=== PATIENT | female | born 1970 | race Caucasian/White ===

== ENCOUNTER → 2016-04-19 | Outpatient (CLI) | payer OTHER ==
[2016-04-22 14:54] LABS: CHLAMYDIA TRACH RNA*** NOT DETECTED (NOT DETECTED); GC (NEIS GONORRHOEAE)RNA** NOT DETECTED (NOT DETECTED)
== END | disposition home or self-care (01) ==
LOC: C.LABSPEC 17:48
PROVIDERS: ATTEND Obstetrics & Gynecology
DX: Z20.2 Contact with and (suspected) exposure to infections with a predominantly sexual mode of transmission (principal)

== ENCOUNTER → 2016-04-20 | Outpatient (CLI) | payer OTHER ==
--- NOTE | 2016-04-20 16:17 | MAMMOGRAPHY REPORT ---
BILATERAL DIGITAL SCREENING MAMMOGRAM TOMOSYNTHESIS WITH CAD: 04/20/2016 CLINICAL HISTORY: Routine screening examination. TECHNIQUE: Breast tomosynthesis in addition to standard 2D mammography was performed. Current study was also evaluated with a Computer Aided Detection (CAD) system. COMPARISON: Comparison is made to exams dated: 04/16/2015 mammogram, 04/15/2014 mammogram, 02/04/2012 mammogram, 04/11/2013 mammogram, 02/16/2012 ultrasound, and 02/16/2012 mammogram - [facility]. BREAST COMPOSITION: The tissue of both breasts is heterogeneously dense, which may obscure small ma sses. FINDINGS: The parenchymal pattern is similar to prior exams. A nodular asymmetry in the lateral mi ddle to posterior right breast on the CC view appears very similar to the 04/11/2013 exam, therefore likely benign. No developing mass, architectural distortion or cluster of suspicious microcalcific ations is seen. IMPRESSION: ACR BI-RADS CATEGORY 2: BENIGN There is no mammographic evidence of malignancy. A 1 year screening mammogram is recommended. The p atient will receive written notification of the results. Approximately 10% of breast cancers are not detected with mammography. A negative mammographic repor t should not delay biopsy if a clinically suggestive mass is present. Annel Sawant M.D. ay/:04/20/2016 15:22:46 Adjuster Arbitrator: Aniat HERNANDEZ(Laron)(Chin), [facility] letter sent: Normal 1/2 BI-RADS Code: ACR BI-RADS Category 2: Benign
== END | disposition home or self-care (01) ==
LOC: C.MAMM 11:10
PROVIDERS: ATTEND Obstetrics & Gynecology
DX: Z12.31 Encounter for screening mammogram for malignant neoplasm of breast (principal)

== ENCOUNTER → 2017-04-22 | Outpatient (CLI) | payer OTHER ==
--- NOTE | 2017-04-22 13:23 | MAMMOGRAPHY REPORT ---
BILATERAL DIGITAL SCREENING MAMMOGRAM TOMOSYNTHESIS WITH CAD: 04/22/2017 CLINICAL HISTORY: Routine screening. Patient has no complaints. TECHNIQUE: Breast tomosynthesis in addition to standard 2D mammography was performed. Current study was also evaluated with a Computer Aided Detection (CAD) system. COMPARISON: Comparison is made to exams dated: 04/20/2016 mammogram, 04/16/2015 mammogram, 04/15/2014 m ammogram, 04/11/2013 mammogram, 02/16/2012 mammogram, and 02/04/2012 mammogram - [facility]. BREAST COMPOSITION: The tissue of both breasts is heterogeneously dense, which may obscure small mas ses. FINDINGS: No suspicious masses, calcifications, or areas of architectural distortion are noted in ei ther breast. There has been no significant interval change compared to prior exams. IMPRESSION: ACR BI-RADS CATEGORY 1: NEGATIVE There is no mammographic evidence of malignancy. A 1 year screening mammogram is recommended. The pa tient will receive written notification of the results. Approximately 10% of breast cancers are not detected with mammography. A negative mammographic report should not delay biopsy if a clinically suggestive mass is present. Omaira Nuno M.D. ah/:04/22/2017 11:47:41 Afterschool: Tereza HERNANDEZ(R)(M), [facility] letter sent: Normal 1/2 BI-RADS Code: ACR BI-RADS Category 1: Negative
== END | disposition home or self-care (01) ==
LOC: C.MAMM 09:51
PROVIDERS: ATTEND Obstetrics & Gynecology
DX: Z12.31 Encounter for screening mammogram for malignant neoplasm of breast (principal)

== ENCOUNTER → 2017-06-15 | Outpatient (CLI) | payer OTHER | END | disposition home or self-care (01) | LOC: C.LAB1850 11:11 | PROVIDERS: ATTEND Obstetrics & Gynecology | DX: E03.9 Hypothyroidism, unspecified (principal) ==

== ENCOUNTER → 2017-06-15 | Outpatient (CLI) | payer OTHER | END | disposition home or self-care (01) | LOC: C.PAPS 17:55 | PROVIDERS: ATTEND Obstetrics & Gynecology | DX: Z01.419 Encounter for gynecological examination (general) (routine) without abnormal findings (principal) ==

== ENCOUNTER 2019-12-31 17:13 | Inpatient (IN) ==
[2019-12-31] MEDS ORDERED: SODIUM CHLORIDE 0.9% 1000ML 1,000 ML IV ONE (17:31)
[2019-12-31] MEDS ORDERED: KETOROLAC 30 MG/ML VIAL IV ONE (17:31)
[2019-12-31] MEDS ORDERED: MAGNESIUM SULFATE / D5W 1 GM/100 ML BAG IV ONE (17:31)
[2019-12-31] MEDS ORDERED: PROCHLORPERAZINE 2 ML IV ONE (17:31)
[2019-12-31] MEDS ORDERED: DiphenhydrAMINE HCL 50 MG/ML VIAL IV STA (17:31)
[2019-12-31 18:26] LABS: INR 1.1 (0.9-1.1); Partial Thromboplastin Ratio 1.3; Partial Thromboplastin Time 36.6 Seconds (21.0-31.0); Prothrombin Time 11.1 Seconds (9.0-12.0)
[2019-12-31 18:32] LABS: Alanine Aminotransferase 25 U/L (12-78); Albumin Level 3.5 gm/dl (3.4-5.0); Aspartate Aminotransferase 18 U/L (15-37); BUN Creatinine Ratio 13.3 (10-20); Blood Urea Nitrogen 11 mg/dl (7-18); Calcium 8.8 mg/dl (8.5-10.1); Carbon Dioxide 25 mmol/L (21-32); Chloride 101 mmol/L (98-107); Creatinine Clr Calc Pharmacy 84.7 ml/min; Est GFR (African American) 102.6; Est GFR (Non-African American) 88.5; Glucose 111 mg/dl (70-99); Magnesium 1.7 mg/dl (1.8-2.4); Potassium 3.4 mmol/L (3.5-5.1); Sodium 132 mmol/L (136-145)
[2019-12-31] MEDS ORDERED: POTASSIUM CHLORIDE 20 MEQ TABCR PO STA (18:33)
[2019-12-31] MEDS ORDERED: DAPTOmycin 400 MG in SYRINGE 0 ML IV ONE (18:34)
[2019-12-31] MEDS ORDERED: CEFEPIME 2,000 MG/20 ML VIAL IV STA (18:34)
[2019-12-31] MEDS ORDERED: DAPTOMYCIN CONSULT ACTIVE PRN (18:34)
[2019-12-31 18:37] LABS: Albumin Globulin Ratio 0.9 (0.9-2); Alkaline Phosphatase 64 U/L (45-117); Bilirubin,Total 0.7 mg/dl (0.2-1); Globulin 3.7 gm/dl (2.5-4.0); Total Protein 7.2 gm/dl (6.4-8.2); Troponin I < 0.015 ng/ml (0-0.045)
[2019-12-31 18:43] LABS: Hematocrit (blood only) 34.2 % (37-47); Hemoglobin 11.4 g/dL (12.0-16.0); Mean Corpuscular Hemoglobin 29.5 pg (25-34); Mean Corpuscular Hgb Conc 33.3 g/dL (32-36); Mean Corpuscular Volume 88.6 fL (80-100); Mean Platelet Volume 10.4 fL (7.4-10.4); Platelet Count 153 K/uL (130-400); RDW Coefficient of Variation 13.3 % (11.5-14.5); RDW Standard Deviation 43.5 fL (36.4-46.3); Red Blood Count 3.86 M/uL (4.2-5.4); White Blood Count 0.61 K/uL (4.8-10.8)
[2019-12-31 18:44] LABS: Basophils # (auto) 0.01 K/uL (0-0.2); Basophils % (auto) 1.6 %; Eosinophils # (auto) 0.04 K/uL (0-0.5); Eosinophils % (auto) 6.6 %; Immature Granulocytes # (auto) 0.02 K/uL (0.00-0.02); Immature Granulocytes % (auto) 3.3 %; Lymphocytes # (auto) 0.34 K/uL (1.2-3.4); Lymphocytes % (auto) 55.7 %; Monocytes % (auto) 16.4 %; Neutrophils % (auto) 16.4 %; Toxic Granulation 1+
--- NOTE | 2019-12-31 19:16 | XRay Report ---
XR chest 1V portable HISTORY: 49 years-old Female SEPSIS acute sepsis COMPARISON: CT abdomen pelvis 10/15/2017 TECHNIQUE: Portable AP view of the chest FINDINGS: Cardiomediastinal and hilar silhouettes are within normal limits. Right subclavian [id number] cath eter distal tip terminates in the expected location of the mid SVC. No pneumothorax, pleural effusion , airspace consolidation or overt pulmonary edema. Bones of the chest appear grossly intact. IMPRESSION: No acute process. ACT 112: Negative or not required by law. The above report was generated using voice recognition software. It may contain grammatical, syntax o r spelling errors. Electronically signed by: Adriel Mai M.D. 12/31/2019 7:15 PM
[2019-12-31 22:33] LABS: Appearance Urine Clear (Clear); Bilirubin Urine Negative (Negative); Blood Urine Negative (Negative); Color Urine Yellow; Glucose Urine UA Negative (Negative); Ketones Urine Negative (Negative); Leukocyte Esterase Urine Negative (Negative); Nitrite Urine Negative (Negative); Protein Urine Negative (Negative); Urobilinogen Urine Negative (Negative); pH Urine 5.5 (4.5-7.5)
--- NOTE | 2019-12-31 22:37 | History and Physical Report ---
DATE OF ADMISSION: 12/31/2019 CHIEF COMPLAINT: Headache and fever. HISTORY OF PRESENT ILLNESS: This 49-year-old female with past medical history significant for recent diagnosis of breast cancer status post surgery and chemo, family history of bicuspid aortic valve, comes with headache and fever. The patient has first chemo last week. Last night she developed a headache and fevers, no neck pain, no cough, no shortness of breath, no nausea, no vomiting, no diarrhea, no abdominal pain, no chest pain. No earache, no runny nose, no sore throat, no odynophagia. Appetite is okay. No rash. Normal bladder movements. No burning micturition. She says she is constipated and last night when she was trying to move her bowels, she has some blood in the stool, but that is not unusual for her. She has hemorrhoids. Currently, her hemodynamics are stable. She has a mild temp spike in the ER. WBC 0.6. Sodium 132, potassium 3.4, magnesium 1.7. COVID-19 PCR negative. Chest x-ray, no acute process seen. ALLERGIES: SULFA ANTIBIOTICS, NAPROSYN PAST MEDICAL HISTORY: As mentioned above. PAST SURGICAL HISTORY: Left breast biopsy, axillary lymph node biopsy, colonoscopy, injection procedure for identification of sentinel node, right sided tunneled central venous access, ligation of oviducts, left partial mastectomy, repair of the bladder defect, uterine leiomyoma ablation. MEDICATIONS: The patient currently on aspirin 81 mg p.o. daily, calcium plus vitamin D 2 tablets daily, Lexapro 20 mg p.o. daily, levothyroxine 25 mcg p.o. daily, multivitamins with minerals 1 tablet daily, Zofran 8 mg p.o. every 8 hours p.r.n., Protonix 40 mg p.o. daily, prochlorperazine 10 mg p.o. q. 6 hours p.r.n., trazodone 50 mg p.o. at bedtime p.r.n. FAMILY HISTORY: Significant for father had prostate cancer, hypertension. Mother had thyroid disorder. Maternal aunt has breast cancer. SOCIAL HISTORY: She is . Former smoker, quit in 2014. Smoked quarter pack a day, smoked more than 0.3 packs a day for 10 years. Alcohol occasional. No drug use. REVIEW OF SYMPTOMS: As per HPI. Rest of review of symptoms negative. PHYSICAL EXAMINATION: GENERAL: The patient is of moderate build, not in acute distress. VITAL SIGNS: T-max 37.6, pulse 88, respiratory rate 16, blood pressure 121/69, oxygen 98% on room air. HEENT: Pupils equal, round, and reactive to light. Oral mucosa moist. NECK: Supple, no neck masses seen. CARDIOVASCULAR: S1, S2 heard, regular rate and rhythm, no murmur, no gallop. RESPIRATORY SYSTEM: Normal AP diameter. No accessory muscle use. No wheezing, no crackles. ABDOMEN: Soft, bowel sounds present, nontender. No distention. CENTRAL NERVOUS SYSTEM: Cranial nerves II-XII grossly intact. Nonfocal. EXTREMITIES: No edema, no erythema. LABORATORY DATA: WBC 0.6, hemoglobin 11.4, hematocrit 34.2, platelets 153, neutrophils 0.1. PT 11.1, INR 1.1, APTT 36.6. Sodium 132, potassium 3.4, chloride 101, bicarbonate 25, BUN 11, creatinine 0.7, serum glucose 111, lactate 1, calcium 8.8, magnesium 1.7, total bilirubin 0.7, AST 18, ALT 25, alkaline phosphatase 64. Troponin I less than 0.015. Procalcitonin less than 0.05. COVID-19 PCR negative. IMAGING: Chest x-ray, no acute findings. EKG: Normal sinus rhythm, rate of 89, no acute ST changes seen. ASSESSMENT AND PLAN: This is a 49-year-old female who presents with febrile neutropenia. 1. Febrile neutropenia. The patient is diagnosed with breast cancer status post left partial mastectomy and first chemo last week, WBC 0.6, neutrophils 0.1. We will treat empirically with IV cefepime and IV vancomycin. Follow the cultures. IV fluids and monitor closely in med/tele. 2. Breast cancer, status post partial left mastectomy and on chemo, follows with hematology/oncology. 3. Depression. Continue Lexapro. 4. Hypothyroidism. Continue Synthroid. 5. Gastroesophageal reflux disease. Continue Protonix. 6. Deep venous thrombosis prophylaxis, Lovenox. DISPOSITION: Closely monitor in the med/tele. Expect discharge home and follow with family doctor. Level 1 full code. MTDD
[2019-12-31] MEDS ORDERED: OXYCODONE HCL IR 5 MG TAB (IMMEDIATE RELEASE) PO PRN (23:15)
[2019-12-31] MEDS ORDERED: NITROGLYCERIN SL 0.4 MG/TAB TAB SL PRN (23:15)
[2019-12-31] MEDS ORDERED: TRAZODONE HCL 50 MG TAB PO PRN (23:15)
[2019-12-31] MEDS ORDERED: ONDANSETRON 4 MG OD TAB PO PRN (23:15)
[2019-12-31] MEDS ORDERED: PROCHLORPERAZINE MALEATE 10 MG TAB PO PRN (23:15)
[2019-12-31] MEDS ORDERED: VANCOMYCIN CONSULT ACTIVE PRN (23:15)
[2019-12-31] MEDS ORDERED: CEFEPIME CONSULT ACTIVE PRN (23:36)
[2020-01-01] MEDS ORDERED: VANCOMYCIN HCL 1,750 MG in SODIUM CHLORIDE 0.9% 500 ML IV ONE
[2020-01-01] MEDS: SODIUM CHLORIDE 0.9% 1000ML 1,000 ML IV SCH ×4 (00:40→23:54)
[2020-01-01] MEDS ORDERED: HEPARIN 100 UNIT/ML 5ML FLUSH FLUSH PRN (00:56)
[2020-01-01] MEDS: CEFEPIME 2,000 MG in SYRINGE 0 ML IV SCH ×3 (04:16→20:46)
[2020-01-01 06:18] LABS: Hemoglobin 9.4 g/dL (12.0-16.0); Mean Corpuscular Hemoglobin 29.3 pg (25-34); Mean Corpuscular Hgb Conc 32.4 g/dL (32-36); Mean Corpuscular Volume 90.3 fL (80-100); Mean Platelet Volume 10.5 fL (7.4-10.4); Platelet Count 153 K/uL (130-400); RDW Coefficient of Variation 13.4 % (11.5-14.5); RDW Standard Deviation 44.1 fL (36.4-46.3); Red Blood Count 3.21 M/uL (4.2-5.4); White Blood Count 1.16 K/uL (4.8-10.8)
[2020-01-01] MEDS: LEVOTHYROXINE SODIUM 25 MCG TABLET PO SCH (06:38)
[2020-01-01 06:44] LABS: BUN Creatinine Ratio 9.5 (10-20); Calcium 8.2 mg/dl (8.5-10.1); Creatinine Clr Calc Pharmacy 79.6 ml/min; Est GFR (African American) 95.3; Est GFR (Non-African American) 82.2; Magnesium 1.9 mg/dl (1.8-2.4); Potassium 3.5 mmol/L (3.5-5.1)
[2020-01-01 07:05] LABS: Basophils # (auto) 0.03 K/uL (0-0.2); Basophils % (auto) 2.6 %; Dohle Bodies 2+; Eosinophils # (auto) 0.07 K/uL (0-0.5); Immature Granulocytes # (auto) 0.11 K/uL (0.00-0.02); Immature Granulocytes % (auto) 9.5 %; Lymphocytes # (auto) 0.43 K/uL (1.2-3.4); Lymphocytes % (auto) 37.1 %; Monocytes # (auto) 0.22 K/uL (0.11-0.59); Neutrophils % (auto) 25.8 %
--- NOTE | 2020-01-01 08:33 | Pharmacy Report ---
Pharmacy Abx Initial Consult - Date of Service January 01, 2020 - Pharmacy Dosing Scope Date of Consult: 01/01/2020 Consultation requested by: Dr. Rasmussen Pharmacy is consulted to initiate Vancomycin + Cefepime IV dosing therapy, order appropriate labs and adjust drug dose/frequency. - Subjective The patient is a 49 year old F admitted on 12/31/19 22:47. - Objective Height: 5 ft 7 in Weight: 71.6 kg Vital Signs (Past 12hrs): Vital Signs Temp Pulse Pulse Resp BP BP Pulse Ox 01/01/20 07:36 98 H 01/01/20 06:41 37.5 C 90 20 115/74 90 01/01/20 03:25 36.7 C 81 20 121/76 96 01/01/20 01:31 97 H 12/31/19 23:27 37.9 C H 97 H 18 112/74 98 12/31/19 22:34 91 H 21 111/54 L 95 12/31/19 22:30 91 H 21 111/54 L 95 12/31/19 22:00 21 96 12/31/19 21:30 87 21 122/66 96 12/31/19 21:00 84 21 119/64 96 12/31/19 20:30 87 21 116/80 96 Lab Results (24hrs): Laboratory Tests (24 Hours) 01/01/20 01/01/20 12/31/19 05:21 05:21 18:02 WBC 1.16 L Neut # (Auto) 0.30 L* Creatinine 0.84 Est Cr Clr Drug Dosing 79.6 Procalcitonin < 0.05 12/31/19 12/31/19 18:02 18:02 WBC 0.61 L* Neut # (Auto) 0.10 L* Creatinine 0.79 Est Cr Clr Drug Dosing 84.7 Procalcitonin Micro Results: 12/31/19 18:33 Aerobic Blood Culture - Pending Blood Anaerobic Blood Culture - Pending 12/31/19 18:02 Aerobic Blood Culture - Pending Blood Anaerobic Blood Culture - Pending - Risk Factors for Resistance * Immunocompromised (chemotherapy) - Assessment & Plan Assessment 49 year old F admitted secondary to headache and fever * PMHx significant for breast cancer s/p partial mastectomy and recent chemotherapy * 24-hr Tmax of 100.2oF. She presented with severe neutropenia of 100 cells/microL which has improved to 300 cells/microL. Renal fxn appears to be stable. Lactic acid and procalcitonin were negative. * Blood cultures are pending at this time. * Patient received Daptomycin x 1 dose in the ED and has been started Vancomycin and Cefepime empirically (48 hour stop date). Plan Vancomycin + Cefepime for empiric treatment of febrile neutropenia Vancomycin IV * Loading Dose: 1750 mg IV x 1 (24.4 mg/kg) * Patient meets criteria for vancomycin AUC dosing nomogram * Maintenance dose: 1000 mg IV every 8 hours (per nomogram; 14 mg/kg) * AUC/RADHAMES is the preferred PK/PD target for vancomycin * Target AUC/RADHAMES = 400-600 * AUC guided dosing is effective and associated with decreased risk of nephrotoxicity Cefepime * 2 gm IV every 8 hours * Dosing appropriate per indication and renal function Pharmacy will continue to follow and will adjust dose/frequency as necessary. Thank you.
[2020-01-01] MEDS: ENOXAPARIN INJ 40 MG/0.4 ML SYR SQ SCH (08:44)
[2020-01-01] MEDS: ASPIRIN 81 MG ECTAB PO SCH (08:44)
[2020-01-01] MEDS: VANCOMYCIN HCL 1,000 MG in SODIUM CHLORIDE 0.9% 250 ML IV SCH ×3 (08:51→23:54)
[2020-01-01] MEDS ORDERED: ESCITALOPRAM OXALATE 20 MG TAB PO SCH (09:00)
[2020-01-01] MEDS ORDERED: CEROVITE ADV FORMULA TAB PO SCH (09:00)
[2020-01-01] MEDS ORDERED: CALCIUM 600MG + VIT D 400 IU TAB PO SCH (09:00)
[2020-01-01] MEDS ORDERED: PANTOprazole 40 MG TAB PO SCH (09:00)
[2020-01-01] MEDS ORDERED: Nursing to Pharmacy Communication SCH (10:30)
--- NOTE | 2020-01-01 11:01 | Emergency Department Note ---
History of Present Illness General Chief complaint: Fever Stated complaint: FEVER, HEADACHE, POST NASAL DRIP Time Seen by Provider: 12/31/19 17:20 Source: patient, family, RN notes reviewed and old records reviewed Mode of arrival: ambulatory Limitations: no limitations History of Present Illness Provider complaint: fever, headache Onset (ago): day(s) 2 Location: head Radiation: non-radiation Severity: severe Pain Consistency: + intermittent Maximum Pain Intensity: 10 Current Pain Intensity: 10 Quality: + aching Relieved By: + immobilization Exacerbated By: + movement Associated symptoms: + cough, + fever/chills and + headaches; no confusion, no chest pain, no diaphoresis, no loss of appetite and no weakness Treatments prior to arrival: none This is a 49-year-old female who presents emergency department complaining of headache that is been ongoing since Tuesday. In addition to the headache patient is also complaining of fevers chills. She denies any neck or back pain. She also states that this is not the worst headache of her life. She has had a PET scan of her head. She is also complaining of rhinorrhea. She has been taking Tylenol for the headache. She is currently receiving chemotherapy. Her last dose was on December 23. Home Medications Home Medications Medication Instructions Recorded Confirmed Type aspirin [Aspirin Low Dose] 81 mg PO DAILY 12/31/19 12/31/19 History calcium carbonate-vitamin D3 2 tab PO DAILY 12/31/19 12/31/19 History [Calcium 600 + D(3)] escitalopram oxalate 20 mg PO DAILY 12/31/19 12/31/19 History levothyroxine 25 mcg PO QAM 12/31/19 12/31/19 History dztlznpzvqbk-Ux-rjha-minerals 1 tab PO DAILY 12/31/19 12/31/19 History [Women's Daily Multivitamin] ondansetron HCl 8 mg PO Q8H PRN 12/31/19 12/31/19 History pantoprazole 40 mg PO DAILY 12/31/19 12/31/19 History prochlorperazine maleate 10 mg PO Q6H PRN 12/31/19 12/31/19 History trazodone 50 mg PO HS PRN 12/31/19 12/31/19 History Allergies Allergy/AdvReac Type Severity Reaction Status Date / Time naproxen Allergy Intermediate RASH Verified 12/31/19 18:53 Sulfa (Sulfonamide Allergy Intermediate RASH Verified 12/31/19 18:53 Antibiotics) Past Med/Surg History Social History Smoking Status: Former smoker Smoking End Date: 5 years ago; Hx Alcohol Use: No Hx Substance Use: No Preferred Language: Mongolian Communication Ability: Effective Director Account Management Required: No Beliefs That Will Affect Care: None Current Living Situation: Parent Current Living Situation Comment: daughter Feels Safe at Home: Yes Assistive Devices: None Review of Systems A total of 10 systems reviewed and were otherwise negative Physical Exam Vital Signs Vital Signs - 24 hr 12/31/19 17:14 12/31/19 17:15 12/31/19 17:44 Temperature 37.6 C H Temperature Source Oral Pulse Rate 95 H 91 H 95 H Pulse Rate from SpO2 Sensor 91 H Pulse Rhythm Regular Respiratory Rate 20 23 20 Respiratory Effort / Characteristics Blood Pressure 121/65 121/65 Blood Pressure Mean 83 83 Blood Pressure Position Sitting Pulse Oximetry 95 97 95 Oxygen Delivery Method Room Air Sepsis Recent Fever Within 48 Hours Yes Sepsis New/Unexplained Change in Mental Status No Sepsis Action Taken by Nursing No Action Required 12/31/19 18:00 12/31/19 18:30 12/31/19 18:33 Temperature Temperature Source Pulse Rate 88 Pulse Rate from SpO2 Sensor 88 Pulse Rhythm Respiratory Rate 20 19 19 Respiratory Effort / Characteristics Non-Labored Non-Labored Blood Pressure 121/69 Blood Pressure Mean 81 Blood Pressure Position Pulse Oximetry 95 97 97 Oxygen Delivery Method Room Air Room Air Sepsis Recent Fever Within 48 Hours Sepsis New/Unexplained Change in Mental Status Sepsis Action Taken by Nursing 12/31/19 19:00 12/31/19 19:30 12/31/19 19:37 Temperature 37.5 C Temperature Source Oral Pulse Rate 87 85 Pulse Rate from SpO2 Sensor 87 85 Pulse Rhythm Respiratory Rate 17 12 16 Respiratory Effort / Characteristics Non-Labored Spontaneous Blood Pressure 117/64 124/71 Blood Pressure Mean 82 89 Blood Pressure Position Pulse Oximetry 95 97 98 Oxygen Delivery Method Room Air Sepsis Recent Fever Within 48 Hours Sepsis New/Unexplained Change in Mental Status Sepsis Action Taken by Nursing 12/31/19 20:00 12/31/19 20:01 12/31/19 20:30 Temperature Temperature Source Pulse Rate 91 H 87 Pulse Rate from SpO2 Sensor 91 H 85 Pulse Rhythm Respiratory Rate 16 17 21 Respiratory Effort / Characteristics Non-Labored Spontaneous Non-Labored Spontaneous Blood Pressure 139/66 116/80 Blood Pressure Mean 88 91 Blood Pressure Position Pulse Oximetry 98 96 96 Oxygen Delivery Method Room Air Room Air Sepsis Recent Fever Within 48 Hours Sepsis New/Unexplained Change in Mental Status Sepsis Action Taken by Nursing 12/31/19 21:00 12/31/19 21:30 12/31/19 22:00 Temperature Temperature Source Pulse Rate 84 87 Pulse Rate from SpO2 Sensor 84 86 Pulse Rhythm Respiratory Rate 21 21 21 Respiratory Effort / Characteristics Non-Labored Spontaneous Non-Labored Spontaneous Non-Labored Spontaneous Blood Pressure 119/64 122/66 Blood Pressure Mean 74 80 Blood Pressure Position Pulse Oximetry 96 96 96 Oxygen Delivery Method Room Air Room Air Room Air Sepsis Recent Fever Within 48 Hours Sepsis New/Unexplained Change in Mental Status Sepsis Action Taken by Nursing 12/31/19 22:30 12/31/19 22:34 Temperature Temperature Source Pulse Rate 91 H 91 H Pulse Rate from SpO2 Sensor 91 H Pulse Rhythm Respiratory Rate 21 21 Respiratory Effort / Characteristics Blood Pressure 111/54 L 111/54 L Blood Pressure Mean 62 Blood Pressure Position Pulse Oximetry 95 95 Oxygen Delivery Method Room Air Sepsis Recent Fever Within 48 Hours Sepsis New/Unexplained Change in Mental Status Sepsis Action Taken by Nursing VITAL SIGNS - Vital signs and nursing notes were reviewed. GENERAL - 49-year-old female appearing stated age who is in no acute distress. Communicates well with provider and answers questions appropriately. No evidence of meningitis or encephalitis on exam SKIN - Without rashes. HEAD - NC/AT. EYES - PERRL with EOMI bilaterally. Sclera anicteric. Palpebral conjunctiva pink and moist with no injection noted. EARS - No deformities of external structures noted on gross examination bilaterally. No pain elicited with palpation of the tragus bilaterally. External auditory canals without discharge or otorrhea. Tympanic membranes pearly cid without retraction or bulging. No fluid or purulent material visualized behind the TM. Handle of malleus, umbo, cone of light, pars tensa/flaccid all easily visualized. NOSE - Midline and without cyanosis. No epistaxis or purulent drainage noted. Septum midline without deviation or septal hematoma noted. MOUTH/OROPHARYNX - Without perioral cyanosis. Buccal mucosa pink and moist and without leukoplakia. Tongue midline with equal elevation of palate bilaterally. No tonsillar hypertrophy, erythema, or exudates noted. dentition noted. NECK - Neck with FROM. Supple to palpation. lymphadenopathy noted. No nuchal rigidity. LUNGS - Chest wall symmetric without accessory muscle use, intercostals ret ractions, or central cyanosis. Normal vesicular breath sounds CTA B/L. No wheezes, rales, or rhonchi appreciated. CARDIAC - RRR with S1/S2. No murmur, rubs, or gallops appreciated. ABDOMEN - Abdominal contour without pulsations or visible masses. BS normoactive all four quadrants. No tenderness, palpable masses, hepatosplenomegaly, or ascites noted. EXTREMITIES - No clubbing or peripheral cyanosis. No pretibial edema present. +3/5 radial, posterior tibial, and dorsalis pedis pulses palpated throughout. +5/5 strength noted in UE/LE bilaterally. NEUROLOGIC - Cranial nerves II through XII grossly intact. Sensory intact to light touch throughout. Patellar reflexes +2/4. PSYCH - A&Ox3 and cooperates fully with examiner. Pt is very pleasant and interacts well with examiner. Course Administered Medications Aspirin (Aspirin 81 Mg Ectab) 81 mg PO DAILY [facility] Stop: 01/31/20 08:59 Last Admin: 01/01/20 08:44 Dose: 81 mg Documented by: [id number] Enoxaparin Sodium (Enoxaparin Inj 40 Mg/0.4 Ml Syr) 40 mg SQ Q24H [facility] Stop: 01/31/20 08:59 Last Admin: 01/01/20 08:44 Dose: 40 mg Documented by: [id number] Sodium Chloride (Nss 1000ml) 1,000 mls @ 125 mls/hr IV .Q8H [facility] Stop: 01/30/20 23:14 Last Admin: 01/01/20 08:37 Dose: 125 mls/hr Documented by: [id number] Infusion: 01/01/20 08:37 Dose: 125 mls/hr Documented by: [id number] Admin: 01/01/20 00:40 Dose: 125 mls/hr Documented by: [id number] Cefepime HCl 2,000 mg/ Syringe 20 mls @ 5 mls/min IV Q8H [facility]; Protocol Stop: 01/03/20 03:59 Last Admin: 01/01/20 04:16 Dose: 5 mls/min Documented by: [id number] Vancomycin HCl 1,000 mg/ (Sodium Chloride) 270 mls @ 125 mls/hr IV Q8H [facility] Stop: 01/03/20 07:59 Last Admin: 01/01/20 08:51 Dose: 125 mls/hr Documented by: [id number] Levothyroxine Sodium (Levothyroxine Sodium 25 Mcg Tablet) 25 mcg PO DAILYBB [facility] Stop: 01/31/20 06:29 Last Admin: 01/01/20 06:38 Dose: 25 mcg Documented by: [id number] Discontinued Medications Diphenhydramine HCl (Diphenhydramine Hcl 50 Mg/Ml Vial) 50 mg IV NOW STA Stop: 12/31/19 17:32 Last Admin: 12/31/19 18:16 Dose: 50 mg Documented by: [id number] Sodium Chloride (Nss 1000ml) 1,000 mls @ 999 mls/hr IV .Q1H1M ONE Stop: 12/31/19 18:31 Last Infusion: 12/31/19 19:18 Dose: 0 mls/hr Documented by: [id number] Admin: 12/31/19 18:15 Dose: 999 mls/hr Documented by: [id number] Prochlorperazine (Compazine) 2 mls @ 1 mls/min IV ONE ONE Stop: 12/31/19 17:32 Last Admin: 12/31/19 18:15 Dose: 1 mls/min Documented by: [id number] Magnesium Sulfate/Dextrose (Magnesium Sulfate / D5w) 1 gm in 100 mls @ 50 mls/hr IV ONE ONE Stop: 12/31/19 19:30 Last Infusion: 12/31/19 20:26 Dose: 0 mls/hr Documented by: [id number] Admin: 12/31/19 18:16 Dose: 50 mls/hr Documented by: [id number] Cefepime HCl (Maxipime) 2,000 mg in 20 mls @ 5 mls/min IV NOW STA; Protocol Stop: 12/31/19 18:37 Last Admin: 12/31/19 19:26 Dose: 5 mls/min Documented by: [id number] Daptomycin 400 mg/ Syringe 8 mls @ 4 mls/min IV NOW ONE; Protocol Stop: 12/31/19 18:35 Last Admin: 12/31/19 19:26 Dose: 4 mls/min Documented by: [id number] Vancomycin HCl 1,750 mg/ (Sodium Chloride) 535 mls @ 200 mls/hr IV NOW ONE; Protocol Stop: 01/01/20 02:40 Last Infusion: 01/01/20 04:00 Dose: 0 mls/hr Documented by: [id number] Admin: 01/01/20 00:40 Dose: 200 mls/hr Documented by: [id number] Ketorolac Tromethamine (Ketorolac 30 Mg/Ml Vial) 30 mg IV NOW ONE Stop: 12/31/19 17:32 Last Admin: 12/31/19 18:16 Dose: 30 mg Documented by: [id number] Potassium Chloride (Potassium Chloride 20 Meq Tabcr) 40 meq PO NOW STA Stop: 12/31/19 18:34 Last Admin: 12/31/19 19:26 Dose: 40 meq Documented by: [id number] Critical Care Time I have personally spent greater than 30 minutes of critical care time in the direct management of this patient. This includes bedside care, interpretation of diagnostic studies, and testing, discussion with consultants, patient, and family members, and other required patient management activities. This 30 minutes is in excess of all separately billable procedures. Medical Decision Making Differential Diagnosis Viral syndrome, otitis, pharyngitis, pneumonia, influenza, meningitis, urinary tract infection, sepsis, bacteremia, as well as other pathologies. Medical Records Attestation: I reviewed the patient's medical records. Home Medications Current Medication List: was personally reviewed by me Laboratory Data Attestation: I reviewed the patient's lab results. Result diagrams: 01/01/20 05:21 01/01/20 05:21 Lab Results 12/31/19 12/31/19 12/31/19 Range/Units 18:02 18:02 18:02 WBC 0.61 L* (4.8-10.8) K/uL RBC 3.86 L (4.2-5.4) M/uL Hgb 11.4 L (12.0-16.0) g/dL Hct 34.2 L (37-47) % MCV 88.6 (80-100) fL MCH 29.5 (25-34) pg MCHC 33.3 (32-36) g/dL RDW Std Deviation 43.5 (36.4-46.3) fL RDW Coeff of Amado 13.3 (11.5-14.5) % Plt Count 153 (130-400) K/uL MPV 10.4 (7.4-10.4) fL Immature Gran % (Auto) 3.3 % Neut % (Auto) 16.4 % Lymph % (Auto) 55.7 % Cassia % (Auto) 16.4 % Eos % (Auto) 6.6 % Baso % (Auto) 1.6 % Neut # (Auto) 0.10 L* (1.4-6.5) K/uL Lymph # (Auto) 0.34 L (1.2-3.4) K/uL Cassia # (Auto) 0.10 L (0.11-0.59) K/uL Eos # (Auto) 0.04 (0-0.5) K/uL Baso # (Auto) 0.01 (0-0.2) K/uL Immature Gran # (Auto) 0.02 (0.00-0.02) K/uL Toxic Granulation 1+ PT 11.1 (9.0-12.0) Seconds INR 1.1 (0.9-1.1) APTT 36.6 H (21.0-31.0) Seconds PTT Ratio 1.3 Sodium 132 L (136-145) mmol/L Potassium 3.4 L (3.5-5.1) mmol/L Chloride 101 (98-107) mmol/L Carbon Dioxide 25 (21-32) mmol/L Anion Gap 6.0 (3-11) BUN 11 (7-18) mg/dl Creatinine 0.79 (0.6-1.2) mg/dl Est Cr Clr Drug Dosing 84.7 ml/min Est GFR ( Amer) 102.6 Est GFR (Non-Af Amer) 88.5 BUN/Creatinine Ratio 13.3 (10-20) Glucose 111 H (70-99) mg/dl Lactate (0.4-2.0) mmol/L Calcium 8.8 (8.5-10.1) mg/dl Magnesium 1.7 L (1.8-2.4) mg/dl Total Bilirubin 0.7 (0.2-1) mg/dl AST 18 (15-37) U/L ALT 25 (12-78) U/L Alkaline Phosphatase 64 (45-117) U/L Troponin I < 0.015 (0-0.045) ng/ml Total Protein 7.2 (6.4-8.2) gm/dl Albumin 3.5 (3.4-5.0) gm/dl Globulin 3.7 (2.5-4.0) gm/dl Albumin/Globulin Ratio 0.9 (0.9-2) Procalcitonin (0-0.5) ng/ml Urine Color Urine Appearance (Clear) Urine pH (4.5-7.5) Ur Specific [place] (1.000-1.030) Urine Protein (Negative) Urine Glucose (UA) (Negative) Urine Ketones (Negative) Urine Blood (Negative) Urine Nitrite (Negative) Urine Bilirubin (Negative) Urine Urobilinogen (Negative) Ur Leukocyte Esterase (Negative) COVID-19 Eval Order COVID-19 PCR (Negative) 12/31/19 12/31/19 12/31/19 Range/Units 18:02 18:02 18:08 WBC (4.8-10.8) K/uL RBC (4.2-5.4) M/uL Hgb (12.0-16.0) g/dL Hct (37-47) % MCV (80-100) fL MCH (25-34) pg MCHC (32-36) g/dL RDW Std Deviation (36.4-46.3) fL RDW Coeff of Amado (11.5-14.5) % Plt Count (130-400) K/uL MPV (7.4-10.4) fL Immature Gran % (Auto) % Neut % (Auto) % Lymph % (Auto) % Cassia % (Auto) % Eos % (Auto) % Baso % (Auto) % Neut # (Auto) (1.4-6.5) K/uL Lymph # (Auto) (1.2-3.4) K/uL Cassia # (Auto) (0.11-0.59) K/uL Eos # (Auto) (0-0.5) K/uL Baso # (Auto) (0-0.2) K/uL Immature Gran # (Auto) (0.00-0.02) K/uL Toxic Granulation PT (9.0-12.0) Seconds INR (0.9-1.1) APTT (21.0-31.0) Seconds PTT Ratio Sodium (136-145) mmol/L Potassium (3.5-5.1) mmol/L Chloride (98-107) mmol/L Carbon Dioxide (21-32) mmol/L Anion Gap (3-11) BUN (7-18) mg/dl Creatinine (0.6-1.2) mg/dl Est Cr Clr Drug Dosing ml/min Est GFR ( Amer) Est GFR (Non-Af Amer) BUN/Creatinine Ratio (10-20) Glucose (70-99) mg/dl Lactate 1.0 (0.4-2.0) mmol/L Calcium (8.5-10.1) mg/dl Magnesium (1.8-2.4) mg/dl Total Bilirubin (0.2-1) mg/dl AST (15-37) U/L ALT (12-78) U/L Alkaline Phosphatase (45-117) U/L Troponin I (0-0.045) ng/ml Total Protein (6.4-8.2) gm/dl Albumin (3.4-5.0) gm/dl Globulin (2.5-4.0) gm/dl Albumin/Globulin Ratio (0.9-2) Procalcitonin < 0.05 (0-0.5) ng/ml Urine Color Urine Appearance (Clear) Urine pH (4.5-7.5) Ur Specific [place] (1.000-1.030) Urine Protein (Negative) Urine Glucose (UA) (Negative) Urine Ketones (Negative) Urine Blood (Negative) Urine Nitrite (Negative) Urine Bilirubin (Negative) Urine Urobilinogen (Negative) Ur Leukocyte Esterase (Negative) COVID-19 Eval Order Covid19 Done at [facility] COVID-19 PCR (Negative) 12/31/19 12/31/19 Range/Units 18:08 22:05 WBC (4.8-10.8) K/uL RBC (4.2-5.4) M/uL Hgb (12.0-16.0) g/dL Hct (37-47) % MCV (80-100) fL MCH (25-34) pg MCHC (32-36) g/dL RDW Std Deviation (36.4-46.3) fL RDW Coeff of Amado (11.5-14.5) % Plt Count (130-400) K/uL MPV (7.4-10.4) fL Immature Gran % (Auto) % Neut % (Auto) % Lymph % (Auto) % Cassia % (Auto) % Eos % (Auto) % Baso % (Auto) % Neut # (Auto) (1.4-6.5) K/uL Lymph # (Auto) (1.2-3.4) K/uL Cassia # (Auto) (0.11-0.59) K/uL Eos # (Auto) (0-0.5) K/uL Baso # (Auto) (0-0.2) K/uL Immature Gran # (Auto) (0.00-0.02) K/uL Toxic Granulation PT (9.0-12.0) Seconds INR (0.9-1.1) APTT (21.0-31.0) Seconds PTT Ratio Sodium (136-145) mmol/L Potassium (3.5-5.1) mmol/L Chloride (98-107) mmol/L Carbon Dioxide (21-32) mmol/L Anion Gap (3-11) BUN (7-18) mg/dl Creatinine (0.6-1.2) mg/dl Est Cr Clr Drug Dosing ml/min Est GFR ( Amer) Est GFR (Non-Af Amer) BUN/Creatinine Ratio (10-20) Glucose (70-99) mg/dl Lactate (0.4-2.0) mmol/L Calcium (8.5-10.1) mg/dl Magnesium (1.8-2.4) mg/dl Total Bilirubin (0.2-1) mg/dl AST (15-37) U/L ALT (12-78) U/L Alkaline Phosphatase (45-117) U/L Troponin I (0-0.045) ng/ml Total Protein (6.4-8.2) gm/dl Albumin (3.4-5.0) gm/dl Globulin (2.5-4.0) gm/dl Albumin/Globulin Ratio (0.9-2) Procalcitonin (0-0.5) ng/ml Urine Color Yellow Urine Appearance Clear (Clear) Urine pH 5.5 (4.5-7.5) Ur Specific [place] 1.010 (1.000-1.030) Urine Protein Negative (Negative) Urine Glucose (UA) Negative (Negative) Urine Ketones Negative (Negative) Urine Blood Negative (Negative) Urine Nitrite Negative (Negative) Urine Bilirubin Negative (Negative) Urine Urobilinogen Negative (Negative) Ur Leukocyte Esterase Negative (Negative) COVID-19 Eval Order COVID-19 PCR NEGATIVE (Negative) Imaging Data Radiologist's Impression: [place], [place] [phone] XRay Report Patient: CHUY JONES Date: 12/31/19 MR#: [id number] Acct ID:[id number]: Date: [address] Zip: [place] [address] Age: 49Location: ED Sex: FRoom/Bed: Att Phy:Diagnosis: FEVER, HEADACHE, POST NASAL DRIP Chelita Phy: Rosy Treviño MDService Date: 12/31/19 Fam Phy:Interpreting Phy: Tan Mai Admit Phy: Ordering Phy: Magan Barrera MD cc: ~ XR chest 1V portable HISTORY: 49 years-old Female SEPSIS acute sepsis COMPARISON: CT abdomen pelvis 10/15/2017 TECHNIQUE: Portable AP view of the chest FINDINGS: Cardiomediastinal and hilar silhouettes are within normal limits. Right subclavian [id number] catheter distal tip terminates in the expected location of the mid SVC. No pneumothorax, pleural effusion, airspace consolidation or overt pulmonary edema. Bones of the chest appear grossly intact. IMPRESSION: No acute process. ACT 112: Negative or not required by law. The above report was generated using voice recognition software. It may contain grammatical, syntax or spelling errors. Electronically signed by: Adriel Mai M.D. 12/31/2019 7:15 PM Dictated: 12/31/191913 Transcribed: 12/31/191913 ECG Data Attestation: I personally reviewed and interpreted this ECG as follows: Indication: + other (fever) Rate (beats per minute): 89 Rhythm: + normal sinus ECG Intervals/blocks: + Normal QT-c (406) ECG [place]: + Normal ECG ST segments: no ST depression and no ST elevation Comparison ECG Date: no prior available MDM Narrative Patient was seen and evaluated as above in room A10. Review was performed of nursing notes and vital signs. I did review pertinent previous visits and patient history. After obtaining a thorough history and physical examination the above work up was performed. This is a 49-year-old female who presents emergency department complaining of headache and fever. Patient is on chemotherapy. For this reason a full work-up was initiated including lactic acid blood cultures. The patient was found to be neutropenic. She was started on broad-spectrum antibiotics including cefepime daptomycin. I did discuss the case with the hospitalist service. In the meantime the patient was given Tylenol Compazine Benadryl magnesium for her headache. Repeat examination revealed improvement the patient's symptoms. Patient has no evidence of meningitis or encephalitis on physical examination. An order was placed for continuous cardiac monitoring. The monitor shows a rate of 90 with Normal Sinus rhythm. The patient was evaluated during the global COVID-19 pandemic, and that diagnos is was suspected/considered upon their initial presentation. Their evaluation, treatment and testing was consistent with current guidelines for patients who present with complaints or symptoms that may be related to COVID-19. Impression & Plan Fever of unknown origin, Hypokalemia Discharge Plan Visit Data Chief Complaint: Fever Stated Complaint: FEVER, HEADACHE, POST NASAL DRIP ED Provider: Magan Barrera Discharge Problem: Fever of unknown origin, Hypokalemia Patient Disposition: Admitted As Inpatient Discharge Instructions Interventions: ED Discharge Assessment Last Done: 12/31/19 22:34
[2020-01-01] MEDS ORDERED: DOCUSATE SODIUM 100 MG CAP PO PRN (12:57)
--- NOTE | 2020-01-01 17:17 | Electrocardiogram Report ---
Test Reason : Blood Pressure : / mmHG Vent. Rate : 089 BPM Atrial Rate : 089 BPM P-R Int : 168 ms QRS Dur : 076 ms QT Int : 334 ms P-R-T Axes : 063 038 051 degrees QTc Int : 406 ms Normal sinus rhythm Normal ECG No previous ECGs available Confirmed by Ibrahima Muniz ([id number]) on 01/01/2020 5:17:23 PM Referred By: Jose C Treviño Confirmed By:Magdy Muniz
--- NOTE | 2020-01-01 17:34 | Hospitalist Progress Note ---
Date of Service January 01, 2020 Assessment & Plan (1) Neutropenic fever: She is diagnosed with left breast cancer in September 2019 followed by lumpectomy and first chemotherapy that was given Tuesday last Admitted with the fever and noted to have neutropenia with generalized weakness She has an airport over her right upper chest wall He has been started with intravenous cefepime and vancomycin 1 out of 2 blood culture grew gram-negative bacilli-identification and sensitivity are pending Her neutrophil count is improving and her white count is slightly better Continue current antibiotic Lorri SCRUGGS has been consulted (2) Breast cancer: Diagnosed in September 2019 and is status post left breast lumpectomy She has a port over right upper chest She got her first chemo last Tuesday (3) Depression: No acute issue Continue citalopram (4) Hypothyroidism: Continue supplement DVT prophylaxis Subcu Lovenox Admission and Anticipated Discharge Date Admission Date: December 31, 2019 Subjective 01/01/2020 The patient was seen and examined in medical floor She is a 49-year-old female with diagnosis of left breast cancer in September, status post a lumpectomy and status post first chemo on Tuesday last She was admitted with neutropenic fever Feeling a little better this morning without any more fever and/or chills Review of Systems Review of Systems: All systems reviewed and are unremarkable except as noted below Constitutional: + weakness; no fever and no chills Physical Exam Physical Exam: Lying in bed comfortably Constitutional: well developed, well nourished and + ill appearing; no acute distress Eyes: PERRL, conjunctivae normal, anicteric sclerae ENMT: external ear and nose normal, oropharynx normal Neck: trachea midline, no thyromegaly Respiratory: normal respiratory effort; no respiratory distress Auscultation: lungs clear to auscultation bilaterally Cardiovascular: Rate/Rhythm: regular rate and regular rhythm Heart Sounds: no murmur Extremities: no edema Gastrointestinal (Abdomen): Inspection/Auscultation: abdomen normal to inspection; abdomen not distended Percussion/Palpation: abdomen soft; abdomen nontender Neurologic: moves all extremities; no focal motor deficits Psychiatric: A+Ox3, euthymic affect Lymphatic: no cervical or axillary lymphadenopathy Results & Data Results & Data ([facility]) Vital Signs (Past 12 Hours) Vital Signs Temp Pulse Pulse Resp BP Pulse Ox 01/01/20 15:13 36.8 C 87 20 118/74 97 10/06/20 11:12 37.1 C 87 20 120/74 95 01/01/20 07:36 98 H 01/01/20 06:41 37.5 C 90 20 115/74 90 Laboratory Results Short CBC 12/31/19 01/01/20 Range/Units 18:02 05:21 WBC 0.61 L* 1.16 L (4.8-10.8) K/uL Hgb 11.4 L 9.4 L (12.0-16.0) g/dL Hct 34.2 L 29.0 L (37-47) % Plt Count 153 153 (130-400) K/uL BMP 12/31/19 01/01/20 18:02 05:21 Sodium 132 L 137 Potassium 3.4 L 3.5 Chloride 101 108 H Carbon Dioxide 25 22 BUN 11 8 Creatinine 0.79 0.84 Glucose 111 H 123 H Calcium 8.8 8.2 L Cardiac Enzymes 12/31/19 Range/Units 18:02 Troponin I < 0.015 (0-0.045) ng/ml Liver Function 12/31/19 Range/Units 18:02 Total Bilirubin 0.7 (0.2-1) mg/dl AST 18 (15-37) U/L ALT 25 (12-78) U/L Alkaline Phosphatase 64 (45-117) U/L Albumin 3.5 (3.4-5.0) gm/dl Urine 12/31/19 Range/Units 22:05 Urine Color Yellow Urine Appearance Clear (Clear) Urine pH 5.5 (4.5-7.5) Ur Specific [place] 1.010 (1.000-1.030) Urine Protein Negative (Negative) Urine Glucose (UA) Negative (Negative) Medications Administered Current Inpatient Medications Acetaminophen (Acetaminophen 325 Mg Tab) 650 mg PO Q4H PRN PRN Reason: Pain or Fever Stop: 01/30/20 23:14 Aspirin (Aspirin 81 Mg Ectab) 81 mg PO DAILY [facility] Stop: 01/31/20 08:59 Last Admin: 01/01/20 08:44 Dose: 81 mg Documented by: Docusate Sodium (Docusate Sodium 100 Mg Cap) 100 mg PO BID PRN PRN Reason: Constipation Stop: 01/31/20 20:59 Enoxaparin Sodium (Enoxaparin Inj 40 Mg/0.4 Ml Syr) 40 mg SQ Q24H [facility] Stop: 01/31/20 08:59 Last Admin: 01/01/20 08:44 Dose: 40 mg Documented by: Escitalopram Oxalate (Escitalopram Oxalate 20 Mg Tab) 20 mg PO HS [facility] Stop: 01/31/20 20:59 Heparin Sodium (Porcine) (Heparin 100 Unit/Ml 5ml Flush) 5 ml FLUSH PRN PRN PRN Reason: Flush Stop: 01/31/20 00:55 Sodium Chloride (Nss 1000ml) 1,000 mls @ 125 mls/hr IV .Q8H [facility] Stop: 01/30/20 23:14 Last Admin: 01/01/20 17:19 Dose: 125 mls/hr Documented by: Cefepime HCl 2,000 mg/ Syringe 20 mls @ 5 mls/min IV Q8H [facility]; Protocol Stop: 01/03/20 03:59 Last Admin: 01/01/20 11:49 Dose: 5 mls/min Documented by: Vancomycin HCl 1,000 mg/ (Sodium Chloride) 270 mls @ 125 mls/hr IV Q8H [facility] Stop: 01/03/20 07:59 Last Admin: 01/01/20 17:19 Dose: 125 mls/hr Documented by: Levothyroxine Sodium (Levothyroxine Sodium 25 Mcg Tablet) 25 mcg PO DAILYBB [facility] Stop: 01/31/20 06:29 Last Admin: 01/01/20 06:38 Dose: 25 mcg Documented by: Miscellaneous Information (Cefepime Consult Active) 1 ea N/A UD PRN PRN Reason: Consult Stop: 01/30/20 23:35 Miscellaneous Information (Vancomycin Consult Active) 1 ea N/A UD PRN PRN Reason: Consult Stop: 01/30/20 23:14 Multivitamins/Minerals (Calcium 600mg + Vit D 400 Iu Tab) 2 tab PO HS [facility] Stop: 01/31/20 20:59 Multivitamins/Minerals (Cerovite Adv Formula Tab) 1 tab PO HS [facility] Stop: 01/31/20 20:59 Nitroglycerin (Nitroglycerin Sl 0.4 Mg/Tab Tab) 0.4 mg SL UD PRN PRN Reason: Chest Pain Stop: 01/30/20 23:14 Ondansetron HCl (Ondansetron 4 Mg Od Tab) 8 mg PO Q8H PRN PRN Reason: Nausea Oxycodone HCl (Oxycodone Hcl Ir 5 Mg Tab (Immediate Release)) 5 mg PO Q6H PRN PRN Reason: Pain Stop: 01/14/20 23:14 Pantoprazole Sodium (Pantoprazole 40 Mg Tab) 40 mg PO HS [facility] Stop: 01/31/20 20:59 Prochlorperazine (Prochlorperazine Maleate 10 Mg Tab) 10 mg PO Q6H PRN PRN Reason: Nausea Stop: 01/30/20 23:14 Trazodone HCl (Trazodone Hcl 50 Mg Tab) 50 mg PO HS PRN PRN Reason: Sleep Stop: 01/30/20 23:14
[2020-01-01] MEDS: CALCIUM 600MG + VIT D 400 IU TAB PO SCH (20:48)
[2020-01-01] MEDS: ESCITALOPRAM OXALATE 20 MG TAB PO SCH (20:48)
[2020-01-01] MEDS: CEROVITE ADV FORMULA TAB PO SCH (20:48)
[2020-01-01] MEDS: PANTOprazole 40 MG TAB PO SCH (20:48)
[2020-01-01] MEDS: LORATADINE 10 MG TAB PO SCH (21:54)
[2020-01-02] MEDS: CEFEPIME 2,000 MG in SYRINGE 0 ML IV SCH ×3 (03:12→19:38)
[2020-01-02] MEDS: LEVOTHYROXINE SODIUM 25 MCG TABLET PO SCH (05:45)
[2020-01-02 05:54] LABS: Hematocrit (blood only) 26.8 % (37-47); Hemoglobin 8.9 g/dL (12.0-16.0); Mean Corpuscular Hgb Conc 33.2 g/dL (32-36); Mean Corpuscular Volume 90.2 fL (80-100); Mean Platelet Volume 10.3 fL (7.4-10.4); Platelet Count 136 K/uL (130-400); RDW Coefficient of Variation 13.3 % (11.5-14.5); RDW Standard Deviation 44.2 fL (36.4-46.3); Red Blood Count 2.97 M/uL (4.2-5.4); White Blood Count 4.51 K/uL (4.8-10.8)
[2020-01-02 06:22] LABS: ALC (manual) 1.05 K/uL (1.2-3.4); ANC (manual) 2.72 K/uL (1.4-6.5); Basophils # (manual) 0.04 K/uL (0-0.2); Basophils % (manual) 0.9 %; Eosinophils # (manual) 0.23 K/uL (0-0.5); Eosinophils % (manual) 5.2 %; Lymphocytes # (manual) 1.05 K/uL (1.2-3.4); Lymphocytes % (manual) 23.3 %; Metamyelocytes # (manual) 0.12 K/uL (0-0); Metamyelocytes % (manual) 2.6 %; Monocytes # (manual) 0.23 K/uL (0.11-0.59); Monocytes % (manual) 5.2 %; Myelocytes # (manual) 0.12 K/uL (0-0); Myelocytes % (manual) 2.6 %; Neutrophils # (manual) 2.72 K/uL (1.4-6.5); Neutrophils % (manual) 60.2 %
[2020-01-02 06:28] LABS: BUN Creatinine Ratio 7.8 (10-20); Creatinine Clr Calc Pharmacy 99.9 ml/min; Est GFR (African American) 120.5; Est GFR (Non-African American) 103.9; Phosphorus 2.2 mg/dl (2.5-4.9); Potassium 3.4 mmol/L (3.5-5.1)
[2020-01-02] MEDS: ENOXAPARIN INJ 40 MG/0.4 ML SYR SQ SCH (07:54)
[2020-01-02] MEDS: ASPIRIN 81 MG ECTAB PO SCH (07:54)
[2020-01-02] MEDS: VANCOMYCIN HCL 1,000 MG in SODIUM CHLORIDE 0.9% 250 ML IV SCH (08:10)
[2020-01-02] MEDS ORDERED: POTASSIUM PHOS 3 MMOL/1 ML INFUSION IV STA (08:37)
--- NOTE | 2020-01-02 08:37 | Hospitalist Progress Note ---
Date of Service January 02, 2020 Assessment & Plan (1) Neutropenic fever: Gram negative bacteremia She is diagnosed with left breast cancer in September 2019 followed by lumpectomy and first chemotherapy that was given Tuesday last Admitted with the fever and noted to have neutropenia with generalized weakness She has an a-port over her right upper chest wall Started with intravenous cefepime and vancomycin 1 out of 2 blood culture grew gram-negative bacilli-identification and sensitivity are pending Her neutrophil count is improving and her white count is better Continue current antibiotic Lorri SCRUGGS has been consulted Pt reports hx of diverticulitis 2 yrs ago Now reports frequent small BMs which are liquid, will obtain stool culture and c. diff Currently no abd. pain, poor appetite (2) Breast cancer: Diagnosed in September 2019 and is status post left breast lumpectomy She has a port over right upper chest She got her first chemo last Tuesday (3) Depression: No acute issue Continue citalopram (4) Hypothyroidism: Continue supplement DVT prophylaxis: Subcu Lovenox Admission and Anticipated Discharge Date Admission Date: December 31, 2019 Subjective Pt is a 49-year-old female with diagnosis of left breast cancer in September, status post a lumpectomy and status post first chemo on Tuesday last She was admitted with neutropenic fever Feeling a little better this morning but reports fever and/or chills last evening Also reports more frequent small BMs/ liquid Tmax 37.6C last evening Review of Systems Review of Systems: All systems reviewed & are unremarkable except as noted in HPI & below Constitutional: + fever and + chills Respiratory: no cough and no dyspnea Cardiovascular: no chest pain and no palpitations Gastrointestinal: + change in bowel habits; no abdominal pain, no nausea and no vomiting Genitourinary: no dysuria Physical Exam Physical Exam: Physical Exam: Lying in bed comfortably Constitutional: well developed, well nourished, no acute distress Eyes: PERRL, EOMI, conjunctivae normal, anicteric sclerae ENMT: external ear and nose normal, oropharynx normal Neck: trachea midline, no thyromegaly Respiratory: normal respiratory effort; no respiratory distress Auscultation: lungs clear to auscultation bilaterally Cardiovascular: Rate/Rhythm: regular rate and regular rhythm Heart Sounds: no murmur Extremities: no edema Gastrointestinal (Abdomen): Inspection/Auscultation: abdomen normal to inspection; abdomen not distended Percussion/Palpation: abdomen soft; abdomen nontender Neurologic: moves all extremities; no focal motor deficits Psychiatric: A+Ox3, euthymic affect Lymphatic: no cervical or axillary lymphadenopathy Results & Data Results & Data ([facility]) Vital Signs (Past 12 Hours) Vital Signs Temp Pulse Pulse Resp BP Pulse Ox 01/02/20 07:00 36.7 C 70 16 110/66 96 01/02/20 03:28 36.8 C 72 18 110/63 94 01/02/20 03:22 80 01/01/20 23:15 37.3 C 80 18 121/69 93 Laboratory Results 01/02/20 01/02/20 01/02/20 Range/Units 08:06 05:26 05:26 WBC 4.51 L (4.8-10.8) K/uL RBC 2.97 L (4.2-5.4) M/uL Hgb 8.9 L (12.0-16.0) g/dL Hct 26.8 L (37-47) % MCV 90.2 (80-100) fL MCH 30.0 (25-34) pg MCHC 33.2 (32-36) g/dL RDW Std Deviation 44.2 (36.4-46.3) fL RDW Coeff of Amado 13.3 (11.5-14.5) % Plt Count 136 (130-400) K/uL MPV 10.3 (7.4-10.4) fL Neutrophils % (Manual) 60.2 % Lymphocytes % (Manual) 23.3 % Monocytes % (Manual) 5.2 % Eosinophils % (Manual) 5.2 % Basophils % (Manual) 0.9 % Metamyelocytes % (Man) 2.6 % Myelocytes % (Man) 2.6 % Neutrophils # (Manual) 2.72 (1.4-6.5) K/uL Total Absolute Neuts 2.72 (1.4-6.5) K/uL Lymphocytes # (Manual) 1.05 L (1.2-3.4) K/uL Total Abs Lymphocytes 1.05 L (1.2-3.4) K/uL Monocytes # (Manual) 0.23 (0.11-0.59) K/uL Eosinophils # (Manual) 0.23 (0-0.5) K/uL Basophils # (Manual) 0.04 (0-0.2) K/uL Metamyelocytes # (Man) 0.12 H (0-0) K/uL Myelocytes # (Manual) 0.12 H (0-0) K/uL Sodium 142 (136-145) mmol/L Potassium 3.4 L (3.5-5.1) mmol/L Chloride 113 H (98-107) mmol/L Carbon Dioxide 24 (21-32) mmol/L Anion Gap 5.0 (3-11) BUN 5 L (7-18) mg/dl Creatinine 0.67 (0.6-1.2) mg/dl Est Cr Clr Drug Dosing 99.9 ml/min Est GFR ( Amer) 120.5 Est GFR (Non-Af Amer) 103.9 BUN/Creatinine Ratio 7.8 L (10-20) Glucose 92 (70-99) mg/dl Calcium 8.0 L (8.5-10.1) mg/dl Phosphorus 2.2 L (2.5-4.9) mg/dl Magnesium 2.0 (1.8-2.4) mg/dl Vancomycin Trough Pending Medications Administered Current Inpatient Medications Acetaminophen (Acetaminophen 325 Mg Tab) 650 mg PO Q4H PRN PRN Reason: Pain or Fever Stop: 01/30/20 23:14 Aspirin (Aspirin 81 Mg Ectab) 81 mg PO DAILY [facility] Stop: 01/31/20 08:59 Last Admin: 01/02/20 07:54 Dose: 81 mg Documented by: Docusate Sodium (Docusate Sodium 100 Mg Cap) 100 mg PO BID PRN PRN Reason: Constipation Stop: 01/31/20 20:59 Enoxaparin Sodium (Enoxaparin Inj 40 Mg/0.4 Ml Syr) 40 mg SQ Q24H [facility] Stop: 01/31/20 08:59 Last Admin: 01/02/20 07:54 Dose: 40 mg Documented by: Escitalopram Oxalate (Escitalopram Oxalate 20 Mg Tab) 20 mg PO HS [facility] Stop: 01/31/20 20:59 Last Admin: 01/01/20 20:48 Dose: 20 mg Documented by: Heparin Sodium (Porcine) (Heparin 100 Unit/Ml 5ml Flush) 5 ml FLUSH PRN PRN PRN Reason: Flush Stop: 01/31/20 00:55 Sodium Chloride (Nss 1000ml) 1,000 mls @ 125 mls/hr IV .Q8H [facility] Stop: 01/30/20 23:14 Last Admin: 01/01/20 23:54 Dose: 125 mls/hr Documented by: Cefepime HCl 2,000 mg/ Syringe 20 mls @ 5 mls/min IV Q8H [facility]; Protocol Stop: 01/08/20 03:59 Last Admin: 01/02/20 03:12 Dose: 5 mls/min Documented by: Vancomycin HCl 1,000 mg/ (Sodium Chloride) 270 mls @ 125 mls/hr IV Q8H [facility] Stop: 01/08/20 07:59 Last Admin: 01/02/20 08:10 Dose: 125 mls/hr Documented by: Levothyroxine Sodium (Levothyroxine Sodium 25 Mcg Tablet) [facility] Stop: 01/31/20 06:29 Last Admin: 01/02/20 05:45 Dose: 25 mcg Documented by: Loratadine (Loratadine 10 Mg Tab) 10 mg PO [facility] Stop: 01/31/20 20:59 Last Admin: 01/01/20 21:54 Dose: 10 mg Documented by: Miscellaneous Information (Cefepime Consult Active) 1 ea N/A UD PRN PRN Reason: Consult Stop: 01/30/20 23:35 Miscellaneous Information (Vancomycin Consult Active) 1 ea N/A UD PRN PRN Reason: Consult Stop: 01/30/20 23:14 Multivitamins/Minerals (Calcium 600mg + Vit D 400 Iu Tab) 2 tab PO [facility] Stop: 01/31/20 20:59 Last Admin: 01/01/20 20:48 Dose: 2 tab Documented by: Multivitamins/Minerals (Cerovite Adv Formula Tab) 1 tab PO [facility] Stop: 01/31/20 20:59 Last Admin: 01/01/20 20:48 Dose: 1 tab Documented by: Nitroglycerin (Nitroglycerin Sl 0.4 Mg/Tab Tab) 0.4 mg SL UD PRN PRN Reason: Chest Pain Stop: 01/30/20 23:14 Ondansetron HCl (Ondansetron 4 Mg Od Tab) 8 mg PO Q8H PRN PRN Reason: Nausea Oxycodone HCl (Oxycodone Hcl Ir 5 Mg Tab (Immediate Release)) 5 mg PO Q6H PRN PRN Reason: Pain Stop: 01/14/20 23:14 Pantoprazole Sodium (Pantoprazole 40 Mg Tab) 40 mg PO HS [facility] Stop: 01/31/20 20:59 Last Admin: 01/01/20 20:48 Dose: 40 mg Documented by: Prochlorperazine (Prochlorperazine Maleate 10 Mg Tab) 10 mg PO Q6H PRN PRN Reason: Nausea Stop: 01/30/20 23:14 Trazodone HCl (Trazodone Hcl 50 Mg Tab) 50 mg PO HS PRN PRN Reason: Sleep Stop: 01/30/20 23:14
[2020-01-02] MEDS ORDERED: POTASSIUM PHOSPHATE 15 MMOL in SODIUM CHLORIDE 0.9% 250 ML IV ONE (09:00)
--- NOTE | 2020-01-02 09:50 | Pharmacy Report ---
Pharmacy Abx Dose Short Note - Date of Service January 02, 2020 - Assessment & Plan Assessment 49 year old F admitted secondary to headache and fever * PMHx significant for breast cancer s/p partial mastectomy and recent chemotherapy * 24-hr Tmax of 99.7oF. She presented with severe neutropenia which has now improved to 2700 cells/microL. Renal fxn stable. Lactic acid and procalcitonin were negative. * 1/ bottles from blood cultures on 12/30 is growing GNB, continue to follow. * Per attending, Vancomycin and Cefepime were extended to 7 days duration and [facility] Infectious Disease service has been consulted. Plan Vancomycin * Trough level of 19.5 mcg/mL is therapeutic * Continue dose of 1000 mg IV every 8 hours * Goal trough level: 15 to 20 mcg/mL * Trough level ordered for the morning of 01/03/2020 to ensure patient is not accumulating vancomycin. Cefepime * Continue 2 gm IV every 8 hours Pharmacy will continue to follow and will adjust dose/frequency as necessary. Thank you.
[2020-01-02 12:03] LABS: Dohle Bodies 2+; Toxic Granulation 1+
[2020-01-02] MEDS: SODIUM CHLORIDE 0.9% 1000ML 1,000 ML IV SCH ×4 (14:54→23:12)
[2020-01-02] MEDS: ACETAMINOPHEN 325 MG TAB PO PRN (14:59)
[2020-01-02] MEDS: CALCIUM 600MG + VIT D 400 IU TAB PO SCH (21:07)
[2020-01-02] MEDS: CEROVITE ADV FORMULA TAB PO SCH (21:08)
[2020-01-02] MEDS: ESCITALOPRAM OXALATE 20 MG TAB PO SCH (21:09)
[2020-01-02] MEDS: PANTOprazole 40 MG TAB PO SCH (21:09)
[2020-01-02] MEDS: LORATADINE 10 MG TAB PO SCH (21:37)
[2020-01-03] MEDS: CEFEPIME 2,000 MG in SYRINGE 0 ML IV SCH ×3 (04:25→21:59)
[2020-01-03] MEDS: ACETAMINOPHEN 325 MG TAB PO PRN ×2 (04:29→08:49)
[2020-01-03] MEDS: LEVOTHYROXINE SODIUM 25 MCG TABLET PO SCH (06:30)
[2020-01-03 06:36] LABS: Hemoglobin 8.4 g/dL (12.0-16.0); Mean Corpuscular Hemoglobin 30.3 pg (25-34); Mean Corpuscular Hgb Conc 33.6 g/dL (32-36); Mean Corpuscular Volume 90.3 fL (80-100); Mean Platelet Volume 10.1 fL (7.4-10.4); Platelet Count 138 K/uL (130-400); RDW Coefficient of Variation 13.6 % (11.5-14.5); RDW Standard Deviation 45.1 fL (36.4-46.3); Red Blood Count 2.77 M/uL (4.2-5.4); White Blood Count 6.84 K/uL (4.8-10.8)
[2020-01-03 06:58] LABS: ALC (manual) 0.66 K/uL (1.2-3.4); ANC (manual) 5.24 K/uL (1.4-6.5); Dohle Bodies 1+; Eosinophils # (manual) 0.18 K/uL (0-0.5); Eosinophils % (manual) 2.6 %; Lymphocytes # (manual) 0.66 K/uL (1.2-3.4); Lymphocytes % (manual) 9.6 %; Metamyelocytes # (manual) 0.12 K/uL (0-0); Metamyelocytes % (manual) 1.7 %; Monocytes # (manual) 0.36 K/uL (0.11-0.59); Monocytes % (manual) 5.2 %; Myelocytes # (manual) 0.29 K/uL (0-0); Myelocytes % (manual) 4.3 %; Neutrophils # (manual) 5.24 K/uL (1.4-6.5); Neutrophils % (manual) 76.6 %; Toxic Granulation 1+
[2020-01-03 07:12] LABS: BUN Creatinine Ratio 5.7 (10-20); Calcium 8.6 mg/dl (8.5-10.1); Creatinine Clr Calc Pharmacy 104.5 ml/min; Est GFR (African American) 122.3; Est GFR (Non-African American) 105.5; Potassium 3.3 mmol/L (3.5-5.1)
[2020-01-03 07:14] LABS: Phosphorus 2.9 mg/dl (2.5-4.9)
[2020-01-03] MEDS ORDERED: VANCOMYCIN TROUGH ONE (07:30)
[2020-01-03] MEDS ORDERED: POTASSIUM CHLORIDE 20 MEQ TABCR PO STA (07:50)
--- NOTE | 2020-01-03 07:52 | Hospitalist Progress Note ---
Date of Service January 03, 2020 Assessment & Plan (1) Neutropenic fever: Gram negative bacteremia Enterobacter cloacae bacteremia Pt diagnosed with left breast cancer in September 2019 followed by lumpectomy and first chemotherapy that was given on 12/23 Admitted with the fever and noted to have neutropenia with generalized weakness She has an a-port over her right upper chest wall Started with intravenous cefepime and vancomycin, stopped vanco 1 out of 2 blood culture grew gram-negative bacilli-positive for Enterobacter cloacae Her neutrophil count is improving and her white count is better Continue current antibiotic -cefepime [facility] ID consulted - recommend to continue cefepime for now, port removal, and discharge on Cipro 500 twice daily for total of 2 weeks Surgery consulted for port removal Pt reports hx of diverticulitis 2 yrs ago Now reports frequent small BMs which are liquid, will obtain stool culture and c. diff Currently no abd. pain, poor appetite C. difficile is negative (2) Breast cancer: Diagnosed in September 2019 and is status post left breast lumpectomy She has a port over right upper chest placed on December [address] Rita Moore She got her first chemo last Tuesday, 12/23 (3) Depression: No acute issue Continue citalopram (4) Hypothyroidism: Continue supplement DVT prophylaxis: Subcu Lovenox Admission and Anticipated Discharge Date Admission Date: December 31, 2019 Subjective Pt is a 49-year-old female with diagnosis of left breast cancer in September, status post a lumpectomy and status post first chemo on 12/23 She was admitted with neutropenic fever Tmax 37.6C on 12/31 evening Blood culture x1, positive for Enterobacter cloacae, discussed with infectious disease at [place], recommend port removal, continue cefepime for now, discharge on Cipro Patient is currently sitting up in bed, in no distress. She denies any fevers, chills, chest pain, shortness of breath, abdominal pain, nausea or vomiting. Discussed port removal and surgical consultation, patient is aware and in agreement. Review of Systems Review of Systems: All systems reviewed & are unremarkable except as noted in HPI & below Constitutional: no fever and no chills Respiratory: no cough and no dyspnea Cardiovascular: no chest pain and no palpitations Gastrointestinal: + change in bowel habits and + diarrhea/loose stools; no abdominal pain, no nausea and no vomiting Physical Exam Physical Exam: Physical Exam: Lying in bed comfortably Constitutional: well developed, well nourished, no acute distress Eyes: PERRL, EOMI, conjunctivae normal, anicteric sclerae ENMT: external ear and nose normal, oropharynx normal Chest: Port placed at the right upper chest, no signs of swelling, drainage or erythema Neck: trachea midline, no thyromegaly Respiratory: normal respiratory effort; no respiratory distress Auscultation: lungs clear to auscultation bilaterally Cardiovascular: Rate/Rhythm: regular rate and regular rhythm Heart Sounds: no murmur Extremities: no edema Gastrointestinal (Abdomen): Inspection/Auscultation: abdomen normal to inspection; abdomen not distended Percussion/Palpation: abdomen soft; abdomen nontender Neurologic: No facial asymmetry, speech fluent, moves all extremities; no focal motor deficits Psychiatric: A+Ox3, euthymic affect Results & Data Results & Data ([facility]) Vital Signs (Past 12 Hours) Vital Signs Temp Pulse Pulse Resp BP Pulse Ox 01/03/20 07:00 36.7 C 85 16 107/68 95 01/03/20 04:00 36.7 C 85 18 115/74 95 01/03/20 02:50 78 Laboratory Results 01/03/20 01/03/20 01/02/20 Range/Units 06:24 06:24 19:05 WBC 6.84 (4.8-10.8) K/uL RBC 2.77 L (4.2-5.4) M/uL Hgb 8.4 L (12.0-16.0) g/dL Hct 25.0 L (37-47) % MCV 90.3 (80-100) fL MCH 30.3 (25-34) pg MCHC 33.6 (32-36) g/dL RDW Std Deviation 45.1 (36.4-46.3) fL RDW Coeff of Amado 13.6 (11.5-14.5) % Plt Count 138 (130-400) K/uL MPV 10.1 (7.4-10.4) fL Neutrophils % (Manual) 76.6 % Lymphocytes % (Manual) 9.6 % Monocytes % (Manual) 5.2 % Eosinophils % (Manual) 2.6 % Metamyelocytes % (Man) 1.7 % Myelocytes % (Man) 4.3 % Neutrophils # (Manual) 5.24 (1.4-6.5) K/uL Total Absolute Neuts 5.24 (1.4-6.5) K/uL Lymphocytes # (Manual) 0.66 L (1.2-3.4) K/uL Total Abs Lymphocytes 0.66 L (1.2-3.4) K/uL Monocytes # (Manual) 0.36 (0.11-0.59) K/uL Eosinophils # (Manual) 0.18 (0-0.5) K/uL Metamyelocytes # (Man) 0.12 H (0-0) K/uL Myelocytes # (Manual) 0.29 H (0-0) K/uL Toxic Granulation 1+ Dohle Bodies 1+ Sodium 143 (136-145) mmol/L Potassium 3.3 L (3.5-5.1) mmol/L Chloride 114 H (98-107) mmol/L Carbon Dioxide 24 (21-32) mmol/L Anion Gap 4.0 (3-11) BUN 4 L (7-18) mg/dl Creatinine 0.64 (0.6-1.2) mg/dl Est Cr Clr Drug Dosing 104.5 ml/min Est GFR ( Amer) 122.3 Est GFR (Non-Af Amer) 105.5 BUN/Creatinine Ratio 5.7 L (10-20) Glucose 98 (70-99) mg/dl Calcium 8.6 (8.5-10.1) mg/dl Phosphorus 2.9 (2.5-4.9) mg/dl Magnesium 2.0 (1.8-2.4) mg/dl Stl C. diff Tox B Gene Negative Cdiff Gene (Neg) Vancomycin Trough (See Comment) mcg/ml 01/02/20 01/02/20 Range/Units 08:06 05:26 WBC (4.8-10.8) K/uL RBC (4.2-5.4) M/uL Hgb (12.0-16.0) g/dL Hct (37-47) % MCV (80-100) fL MCH (25-34) pg MCHC (32-36) g/dL RDW Std Deviation (36.4-46.3) fL RDW Coeff of Amado (11.5-14.5) % Plt Count (130-400) K/uL MPV (7.4-10.4) fL Neutrophils % (Manual) % Lymphocytes % (Manual) % Monocytes % (Manual) % Eosinophils % (Manual) % Metamyelocytes % (Man) % Myelocytes % (Man) % Neutrophils # (Manual) (1.4-6.5) K/uL Total Absolute Neuts (1.4-6.5) K/uL Lymphocytes # (Manual) (1.2-3.4) K/uL Total Abs Lymphocytes (1.2-3.4) K/uL Monocytes # (Manual) (0.11-0.59) K/uL Eosinophils # (Manual) (0-0.5) K/uL Metamyelocytes # (Man) (0-0) K/uL Myelocytes # (Manual) (0-0) K/uL Toxic Granulation 1+ Dohle Bodies 2+ Sodium (136-145) mmol/L Potassium (3.5-5.1) mmol/L Chloride (98-107) mmol/L Carbon Dioxide (21-32) mmol/L Anion Gap (3-11) BUN (7-18) mg/dl Creatinine (0.6-1.2) mg/dl Est Cr Clr Drug Dosing ml/min Est GFR ( Amer) Est GFR (Non-Af Amer) BUN/Creatinine Ratio (10-20) Glucose (70-99) mg/dl Calcium (8.5-10.1) mg/dl Phosphorus (2.5-4.9) mg/dl Magnesium (1.8-2.4) mg/dl Stl C. diff Tox B Gene (Neg) Vancomycin Trough 19.5 (See Comment) mcg/ml Medications Administered Current Inpatient Medications Acetaminophen (Acetaminophen 325 Mg Tab) 650 mg PO Q4H PRN PRN Reason: Pain or Fever Stop: 01/30/20 23:14 Last Admin: 01/03/20 04:29 Dose: 650 mg Documented by: Aspirin (Aspirin 81 Mg Ectab) 81 mg PO DAILY [facility] Stop: 01/31/20 08:59 Last Admin: 01/02/20 07:54 Dose: 81 mg Documented by: Docusate Sodium (Docusate Sodium 100 Mg Cap) 100 mg PO BID PRN PRN Reason: Constipation Stop: 01/31/20 20:59 Enoxaparin Sodium (Enoxaparin Inj 40 Mg/0.4 Ml Syr) 40 mg SQ Q24H [facility] Stop: 01/31/20 08:59 Last Admin: 01/02/20 07:54 Dose: 40 mg Documented by: Escitalopram Oxalate (Escitalopram Oxalate 20 Mg Tab) 20 mg PO [facility] Stop: 01/31/20 20:59 Last Admin: 01/02/20 21:09 Dose: 20 mg Documented by: Heparin Sodium (Porcine) (Heparin 100 Unit/Ml 5ml Flush) 5 ml FLUSH PRN PRN PRN Reason: Flush Stop: 01/31/20 00:55 Sodium Chloride (Nss 1000ml) 1,000 mls @ 125 mls/hr IV .Q8H [facility] Stop: 01/30/20 23:14 Last Admin: 01/02/20 23:12 Dose: 125 mls/hr Documented by: Cefepime HCl 2,000 mg/ Syringe 20 mls @ 5 mls/min IV Q8H [facility]; Protocol Stop: 01/08/20 03:59 Last Admin: 01/03/20 04:25 Dose: 5 mls/min Documented by: Levothyroxine Sodium (Levothyroxine Sodium 25 Mcg Tablet) [facility]: 01/31/20 06:29 Last Admin: 01/03/20 06:30 Dose: 25 mcg Documented by: Loratadine (Loratadine 10 Mg Tab) 10 mg PO [facility] Stop: 01/31/20 20:59 Last Admin: 01/02/20 21:37 Dose: 10 mg Documented by: Miscellaneous Information (Cefepime Consult Active) 1 ea N/A UD PRN PRN Reason: Consult Stop: 01/30/20 23:35 Multivitamins/Minerals (Calcium 600mg + Vit D 400 Iu Tab) 2 tab PO [facility] Stop: 01/31/20 20:59 Last Admin: 01/02/20 21:07 Dose: 2 tab Documented by: Multivitamins/Minerals (Cerovite Adv Formula Tab) 1 tab PO [facility] Stop: 01/31/20 20:59 Last Admin: 01/02/20 21:08 Dose: 1 tab Documented by: Nitroglycerin (Nitroglycerin Sl 0.4 Mg/Tab Tab) 0.4 mg SL UD PRN PRN Reason: Chest Pain Stop: 01/30/20 23:14 Ondansetron HCl (Ondansetron 4 Mg Od Tab) 8 mg PO Q8H PRN PRN Reason: Nausea Oxycodone HCl (Oxycodone Hcl Ir 5 Mg Tab (Immediate Release)) 5 mg PO Q6H PRN PRN Reason: Pain Stop: 01/14/20 23:14 Pantoprazole Sodium (Pantoprazole 40 Mg Tab) 40 mg PO HS [facility] Stop: 01/31/20 20:59 Last Admin: 01/02/20 21:09 Dose: 40 mg Documented by: Prochlorperazine (Prochlorperazine Maleate 10 Mg Tab) 10 mg PO Q6H PRN PRN Reason: Nausea Stop: 01/30/20 23:14 Trazodone HCl (Trazodone Hcl 50 Mg Tab) 50 mg PO HS PRN PRN Reason: Sleep Stop: 01/30/20 23:14
[2020-01-03] MEDS: SODIUM CHLORIDE 0.9% 1000ML 1,000 ML IV SCH ×2 (08:42→17:43)
[2020-01-03] MEDS: ASPIRIN 81 MG ECTAB PO SCH (08:43)
[2020-01-03] MEDS: ENOXAPARIN INJ 40 MG/0.4 ML SYR SQ SCH (08:44)
--- NOTE | 2020-01-03 09:37 | Surgery Consultation ---
Date of Consultation January 03, 2020 Assessment & Plan (1) Bacteremia due to Enterobacter species: This is a 49y F with a PMH of breast cancer s/p lumpectomy on 11/21/19, hypothyroidism, and depression who presents to the [facility] on 12/31/19 with complaints of fever/chills and a headache. Workup has since showed + blood cultures on 12/31/19 growing enterobacter cloacae. Infectious disease has been following and recommended port removal given bacteremia. Patient has been febrile now for >24 hours. Patient has eaten breakfast around 8AM. We will make her NPO now and try to get her on the OR schedule today for port removal. She has been covid tested this admission which is negative. Supervising Physician Co-Signing Physician Notes I personally saw and evaluated the patient with Daiana Mccarthy PA-C and agree with assessment and plan as above. 49 yo female with recent port placement for breast cancer -Has bacteremia and needs port removed -Patient ate breakfast, but will plan on removal later today -Consent obtained, risks discussed including bleeding, infection History of Present Illness Attending Physician: Chong Pimentel MD History of Present Illness This is a 49y F with a PMH of breast cancer s/p lumpectomy on 11/21/19, hypothyroidism, and depression who presents to the [facility] on 12/31/19 with complaints of fever/chills and a headache. Patient states tuesday evening she thought she was constipated and kept having urges to go to the bathroom to have a bowel movement. Looking back she thinks she was having a diverticulitis flare. On Tuesday she developed fevers/chills and a headache prompting her to come into the ED for further evaluation. In the ER patient was found to be febrile and blood cultures drawn. She was started on broad spectrum abx. Blood cultures have since returned + for enterobacter cloacae. Of significance the patient is s/p breast lumpectomy on 11/21/19, underwent port placement for chemo on 12/12/19, and had her first session of chemo on 12/24/19. Infectious disease was consulted who recommended patient's port be removed given bacteremia. Surgery was consulted for further evaluation. Patient denies any issues with her port that she has noticed, no redness/swelling. Allergies Allergy/AdvReac Type Severity Reaction Status Date / Time naproxen Allergy Intermediate RASH Verified 12/31/19 18:53 Sulfa (Sulfonamide Allergy Intermediate RASH Verified 12/31/19 18:53 Antibiotics) Home Medications Home Medications Medication Instructions Recorded Confirmed Type aspirin [Aspirin Low Dose] 81 mg PO DAILY 12/31/19 12/31/19 History calcium carbonate-vitamin D3 2 tab PO DAILY 12/31/19 12/31/19 History [Calcium 600 + D(3)] escitalopram oxalate 20 mg PO DAILY 12/31/19 12/31/19 History levothyroxine 25 mcg PO QAM 12/31/19 12/31/19 History fsnnnrsatknv-Rf-gngp-minerals 1 tab PO DAILY 12/31/19 12/31/19 History [Women's Daily Multivitamin] ondansetron HCl 8 mg PO Q8H PRN 12/31/19 12/31/19 History pantoprazole 40 mg PO DAILY 12/31/19 12/31/19 History prochlorperazine maleate 10 mg PO Q6H PRN 12/31/19 12/31/19 History trazodone 50 mg PO HS PRN 12/31/19 12/31/19 History Patient History Social History Smoking Status: Former smoker Hx Alcohol Use: No Hx Substance Use: No Preferred Language: Iraqi Communication Ability: Effective Lead Cargo Mover Required: No Beliefs That Will Affect Care: None marital status: Legally Current Living Situation: Parent Current Living Situation Comment: daughter Feels Safe at Home: Yes Assistive Devices: Glasses Review of Systems Constitutional: + fever and + chills Respiratory: no cough and no dyspnea Cardiovascular: no chest pain and no dyspnea Gastrointestinal: + diarrhea/loose stools; no abdominal pain, no nausea and no vomiting Genitourinary: no dysuria Musculoskeletal: no back pain Integumentary: no rash and no lesions no redness or swelling surrounding port Neurologic: no headache(s) Hematologic / Lymphatic: no easy bleeding and no easy bruising Physical Exam Physical Exam: awake/alert Constitutional: well developed; no acute distress Eyes: PERRL, conjunctivae normal, anicteric sclerae ENMT: external ear and nose normal, oropharynx normal Neck: trachea midline, no thyromegaly Respiratory: normal respiratory effort; no respiratory distress Cardiovascular: RRR, no murmur, no edema Gastrointestinal (Abdomen): Inspection/Auscultation: abdomen not distended Percussion/Palpation: abdomen soft; abdomen nontender Skin: no rashes, warm and dry Port in R chest wall, no erythema/swelling or signs of infection Psychiatric: A+Ox3, euthymic affect Results & Data ([facility]) Vital Signs (Past 12 Hours) Vital Signs Temp Pulse Pulse Resp BP Pulse Ox 01/03/20 07:00 36.7 C 85 16 107/68 95 01/03/20 04:00 36.7 C 85 18 115/74 95 01/03/20 02:50 78 PG Care Time/CCT Total # of Minutes Spent Total Time Spent with Patient: Total time spent is greater than 50% in coordination of care (as documented) at patient's floor/unit and/or counseling patient: Coding Level of Care Code 54808 Inpt Consult Level 3 Diagnoses Bacteremia due to Enterobacter species R78.81; B96.89
--- NOTE | 2020-01-03 14:57 | Anesthesiology Consultation ---
Date of Service January 03, 2020 Assessment & Plan Chart Review Chart Review: Acceptable Risk for Surgery Consults Requested none History Surgery Operation Date: 01/03/20 17:15 Proposed Procedures p Infusaport Removal - Tarun Miguel DO Height/Weight Height: 5 ft 7 in Weight: 73.7 kg Allergies Allergy/AdvReac Type Severity Reaction Status Date / Time naproxen Allergy Intermediate RASH Verified 12/31/19 18:53 Sulfa (Sulfonamide Allergy Intermediate RASH Verified 12/31/19 18:53 Antibiotics) Medications Home Medications Medication Instructions Recorded Confirmed Last Taken aspirin [Aspirin Low Dose] 81 mg PO DAILY 12/31/19 12/31/19 Unknown calcium carbonate-vitamin D3 2 tab PO DAILY 12/31/19 12/31/19 Unknown [Calcium 600 + D(3)] escitalopram oxalate 20 mg PO DAILY 12/31/19 12/31/19 Unknown levothyroxine 25 mcg PO QAM 12/31/19 12/31/19 Unknown vomdfsoinzat-Kd-wtun-minerals 1 tab PO DAILY 12/31/19 12/31/19 Unknown [Women's Daily Multivitamin] ondansetron HCl 8 mg PO Q8H PRN 12/31/19 12/31/19 Unknown pantoprazole 40 mg PO DAILY 12/31/19 12/31/19 Unknown prochlorperazine maleate 10 mg PO Q6H PRN 12/31/19 12/31/19 Unknown trazodone 50 mg PO HS PRN 12/31/19 12/31/19 Unknown Active Medications Generic Name Dose Route Start Last Admin Trade Name Freq PRN Reason Stop Dose Admin Acetaminophen 650 mg 12/31/19 23:15 01/03/20 08:49 Acetaminophen 325 Mg Tab PO 01/30/20 23:14 650 mg Q4H PRN Administration Pain or Fever Aspirin 81 mg 01/01/20 09:00 01/03/20 08:43 Aspirin 81 Mg Ectab PO 01/31/20 08:59 81 mg DAILY SNOW Administration Enoxaparin Sodium 40 mg 01/01/20 09:00 01/03/20 08:44 Enoxaparin Inj 40 Mg/0.4 Ml Syr SQ 01/31/20 08:59 40 mg Q24H SNOW Administration Escitalopram Oxalate 20 mg 01/01/20 21:00 10/07/20 21:09 Escitalopram Oxalate 20 Mg Tab PO 01/31/20 20:59 20 mg HS NSOW Administration Sodium Chloride 1,000 mls @ 125 mls/hr 12/31/19 23:15 01/03/20 08:42 Nss 1000ml IV 01/30/20 23:14 125 mls/hr .Q8H SNOW Administration Cefepime HCl 2,000 mg/ Syringe 20 mls @ 5 mls/min 01/01/20 04:00 01/03/20 12:30 IV 01/08/20 03:59 5 mls/min Q8H SNOW Administration Protocol Levothyroxine Sodium 25 mcg 01/01/20 06:30 01/03/20 06:30 Levothyroxine Sodium 25 Mcg Tablet PO 01/31/20 06:29 25 mcg DAILYBB SNOW Administration Loratadine 10 mg 01/01/20 21:00 01/02/20 21:37 Loratadine 10 Mg Tab PO 01/31/20 20:59 10 mg HS SNOW Administration Multivitamins/Minerals 2 tab 01/01/20 21:00 01/02/20 21:07 Calcium 600mg + Vit D 400 Iu Tab PO 01/31/20 20:59 2 tab HS SNOW Administration Multivitamins/Minerals 1 tab 01/01/20 21:00 01/02/20 21:08 Cerovite Adv Formula Tab PO 01/31/20 20:59 1 tab HS SNOW Administration Pantoprazole Sodium 40 mg 01/01/20 21:00 01/02/20 21:09 Pantoprazole 40 Mg Tab PO 01/31/20 20:59 40 mg HS SNOW Administration NPO Date Last Intake of Fluids: 01/03/20 Time Last Intake of Fluids: 09:15 Date Last Intake of Solids: 01/03/20 Time Last Intake of Solids: 08:30 Social History Smoking Status: Former smoker Smoking End Date: 5 years ago Hx Alcohol Use: No Hx Substance Use: No Physical Exam Vital Signs Last Vital Signs Temp 37.3 C 01/03/20 11:00 Pulse 71 01/03/20 11:00 Resp 16 01/03/20 11:00 BP 121/73 01/03/20 11:00 Pulse Ox 95 01/03/20 11:00 Testing Laboratory Results 01/03/20 06:24 01/03/20 06:24 PT 11.1 Seconds (9.0-12.0) 12/31/19 18: INR 1.1 (0.9-1.1) 12/31/19 18:02 APTT 36.6 Seconds (21.0-31.0) H 12/31/19 18:02 Urine Color Yellow 12/31/19 22:05 Urine Appearance Clear (Clear) 12/31/19 22:05 Urine pH 5.5 (4.5-7.5) 12/31/19 22:05 Ur Specific [place] 1.010 (1.000-1.030) 12/31/19 22:05 Urine Protein Negative (Negative) 12/31/19 22: Urine Glucose (UA) Negative (Negative) 12/31/19 22: Urine Ketones Negative (Negative) 12/31/19 22: Urine Nitrite Negative (Negative) 12/31/19 22:05 Ur Leukocyte Esterase Negative (Negative) 12/31/19 22:05 01/02/20 12:13 Aerobic Blood Culture - Preliminary Blood No growth in Aerobic bottle after 24 hours. Anaerobic Blood Culture - Preliminary No growth in Anaerobic bottle after 24 hours. 01/02/20 12:13 Aerobic Blood Culture - Preliminary Blood No growth in Aerobic bottle after 24 hours. Anaerobic Blood Culture - Preliminary No growth in Anaerobic bottle after 24 hours. 01/02/20 19:05 Escherichia coli Shiga Toxins Test - Preliminary Stool Stool Culture - Preliminary No Salmonella isolated to date, No Shigella isolated to date, No Campylobacter jejuni isolated to date. 12/31/19 18:02 Aerobic Blood Culture - Preliminary Blood Enterobacter cloacae Anaerobic Blood Culture - Preliminary No growth in Anaerobic bottle after 48 hours. 12/31/19 18:33 Aerobic Blood Culture - Preliminary Blood No growth in Aerobic bottle after 48 hours. Anaerobic Blood Culture - Preliminary No growth in Anaerobic bottle after 48 hours.
[2020-01-03] MEDS ORDERED: fentaNYL citrate 100 MCG/2 ML VIAL ONE (15:01)
[2020-01-03] MEDS ORDERED: LIDOCAINE HCL 2% 2 ML VIAL/AMP(20MG/ML) INFIL ONE (15:01)
[2020-01-03] MEDS ORDERED: ONDANSETRON INJ 2 MG/ML 2 ML VIAL ONE (15:01)
[2020-01-03] MEDS ORDERED: PROPOFOL IV EMULSION 10 MG/ML 20 ML VIAL IV ONE ×2 (15:01→16:17)
[2020-01-03] MEDS ORDERED: MIDAZOLAM HCL 1 MG/ML 2ML VIAL ONE ×2 (15:01→16:05)
[2020-01-03] MEDS ORDERED: BUPIVACAINE/EPINEPHRINE 0.25% 1:200,000 30 ML VIAL INJ ONE (16:28)
--- NOTE | 2020-01-03 16:44 | Operative Report ---
PG Post Operative Report Pre & Post Diagnosis Operation Date: 01/03/20 17:15 Pre-Op Diagnosis: Bacteremia Post-Op Diagnosis: Bacteremia I identified the patient and participated in the time-out.: Yes Procedure Operation Date: 01/03/20 17:15 Actual Procedures p Infusaport Removal - Tarun Miguel DO Surgeon Tarun Miguel DO Mdm Sr Daiana Mccarthy PA-C Estimated Blood Loss 5 Findings See Below Mediport and catheter intact upon removal Fluids see anesthesia record Specimens Mediport to pathology Drains None Anesthesia Type MAC Complications none Disposition Disposition: Recovery Room Indications 49 yo female with bacteremia and mediport in place requiring removal Description of Procedure The patient was brought to the OR and placed in the supine position. At this time she underwent MAC anesthesia without problem. Her right chest was prepped and draped in the usual sterile fashion. She was given appropriate pre- operative antibiotics. Timeout was called, procedure was verified as Mediport removal. Surgical, anesthesia and nursing teams agreed and the procedure was begun. Patient was then placed in Trendelenburg position. After injection of 0.25% Marcaine with epinephrine, a transverse incision directly through her old incision was made using a #15 blade scalpel. This was carried down directly to the port using electrocautery. At this time the catheter was delivered out of the incision. The sutures on the mediport itself were then cut and the entire mediport/catheter complex removed and passed off as specimen. At this time the incision was irrigated until clear. Hemostasis was achieved using electrocautery. Hemostasis was complete. At this time the capsule was closed using 3-0 Vicryl. Deep dermal layer of skin was closed using 3-0 Vicryl and the skin was closed using 4-0 Monocryl. Sterile dressing was applied. All needle and sponge counts were correct x 2. The patient was then awakened from anesthesia and transported to PACU in stable condition. I attest to the content of the Intraoperative Record and any orders documented therein. Any exceptions are noted below.
[2020-01-03] MEDS ORDERED: ACETAMINOPHEN 325 MG TAB PO STA (17:00)
--- NOTE | 2020-01-03 17:30 | Anesthesiology Progress Note ---
Date of Service January 03, 2020 Anesthesia Post Procedure Vital Signs Vital Signs: Temp Pulse Pulse Pulse Resp BP BP 01/03/20 17:15 36.7 C 70 18 122/62 01/03/20 17:05 69 12 125/68 01/03/20 16:55 74 14 115/80 01/03/20 16:45 36.4 C L 81 20 125/60 01/03/20 15:49 36.8 C 70 16 123/80 01/03/20 11:00 37.3 C 71 16 121/73 01/03/20 08:30 58 L 01/03/20 07:00 36.7 C 85 16 107/68 01/03/20 04:00 36.7 C 85 18 115/74 01/03/20 02:50 78 01/02/20 19:48 36.6 C 76 18 118/70 Pulse Ox 01/03/20 17:15 99 01/03/20 17:05 97 01/03/20 16:55 97 01/03/20 16:45 96 01/03/20 15:49 98 01/03/20 11:00 95 01/03/20 08:30 01/03/20 07:00 95 01/03/20 04:00 95 01/03/20 02:50 01/02/20 19:48 94 Pain Intensity Head: Pain Intensity: 6 Transfer of Care Handoff Completed per policy Notes Mental Status: alert / awake / arousable and participated in evaluation Patient Amnestic to Procedure: Yes Nausea / Vomiting: adequately controlled Pain: adequately controlled Airway Patency, RR, SpO2: stable & adequate BP & HR: stable & adequate Hydration State: stable & adequate Anesthetic Complications: no major complications apparent
[2020-01-03] MEDS: PANTOprazole 40 MG TAB PO SCH (21:59)
[2020-01-03] MEDS: ESCITALOPRAM OXALATE 20 MG TAB PO SCH (22:00)
[2020-01-03] MEDS: CEROVITE ADV FORMULA TAB PO SCH (22:00)
[2020-01-03] MEDS: LORATADINE 10 MG TAB PO SCH (22:01)
[2020-01-03] MEDS: CALCIUM 600MG + VIT D 400 IU TAB PO SCH (22:01)
[2020-01-04] MEDS: SODIUM CHLORIDE 0.9% 1000ML 1,000 ML IV SCH ×2 (01:13→09:23)
[2020-01-04] MEDS: ACETAMINOPHEN 325 MG TAB PO PRN ×2 (01:34→08:08)
[2020-01-04] MEDS: CEFEPIME 2,000 MG in SYRINGE 0 ML IV SCH (04:13)
[2020-01-04] MEDS: LEVOTHYROXINE SODIUM 25 MCG TABLET PO SCH (06:08)
--- NOTE | 2020-01-04 07:30 | Hospitalist Progress Note ---
Date of Service January 04, 2020 Assessment & Plan (1) Neutropenic fever: Gram negative bacteremia Enterobacter cloacae bacteremia Pt diagnosed with left breast cancer in September 2019 followed by lumpectomy and first chemotherapy that was given on 12/23 Admitted with the fever and noted to have neutropenia with generalized weakness She has an a-port over her right upper chest wall on admission Started with intravenous cefepime and vancomycin, stopped vanco 1 out of 2 blood culture grew gram-negative bacilli-positive for Enterobacter cloacae Her neutrophil count is improving and her white count is better Continue current antibiotic -cefepime while inpt [facility] ID consulted - recommend to continue cefepime for now, port removal, and discharge on Cipro 500 twice daily for next 10 days Surgery consulted for port removal, port was removed on January 02 Pt reports hx of diverticulitis 2 yrs ago Now reports frequent small BMs which are liquid, will obtain stool culture and c. diff Currently no abd. pain, poor appetite C. difficile is negative (2) Breast cancer: Diagnosed in September 2019 and is status post left breast lumpectomy She has a port over right upper chest placed on December [address] Rita Moore She got her first chemo last Tuesday, 12/23 Port now removed as above Dr. Treviño aware Patient has blasts on her CBC today, January 03 Discussed with her oncologist, Dr. Treviño, this is due to Neulasta and is expected, it is okay for patient to be discharged (3) Depression: No acute issue Continue citalopram (4) Hypothyroidism: Continue supplement DVT prophylaxis: Subcu Lovenox Admission and Anticipated Discharge Date Admission Date: December 31, 2019 Subjective Patient is sitting up in bed, in no acute distress. Port removed yesterday. Currently denies any fevers chills, chest pain, shortness of breath, she has mild headache. Review of Systems Review of Systems: All systems reviewed & are unremarkable except as noted in HPI & below Constitutional: no fever and no chills Respiratory: no cough and no dyspnea Cardiovascular: no chest pain and no palpitations Gastrointestinal: no abdominal pain, no nausea and no vomiting Neurologic: + headache(s) (mild) Physical Exam Physical Exam: Physical Exam: Lying in bed comfortably Constitutional: well developed, well nourished, no acute distress Eyes: PERRL, EOMI, conjunctivae normal, anicteric sclerae ENMT: external ear and nose normal, oropharynx normal Chest: Port removed at the right upper chest, clean dressings applied, no signs of swelling, drainage or erythema Neck: trachea midline, no thyromegaly Respiratory: normal respiratory effort; no respiratory distress Auscultation: lungs clear to auscultation bilaterally Cardiovascular: Rate/Rhythm: regular rate and regular rhythm Heart Sounds: no murmur Extremities: no edema Gastrointestinal (Abdomen): Inspection/Auscultation: abdomen normal to inspection; abdomen not distended Percussion/Palpation: abdomen soft; abdomen nontender Neurologic: No facial asymmetry, speech fluent, moves all extremities; no focal motor deficits Psychiatric: A+Ox3, euthymic affect Results & Data Results & Data ([facility]) Vital Signs (Past 12 Hours) Vital Signs Temp Pulse Pulse Pulse Resp BP Pulse Ox 01/04/20 04:00 36.7 C 68 20 108/65 94 01/03/20 23:52 36.7 C 87 20 109/64 95 01/03/20 22:20 79 01/03/20 20:00 36.7 C 76 20 136/68 97 Laboratory Results 01/04/20 01/04/20 Range/Units 07:48 07:48 WBC 7.17 (4.8-10.8) K/uL RBC 2.88 L (4.2-5.4) M/uL Hgb 8.6 L (12.0-16.0) g/dL Hct 26.1 L (37-47) % MCV 90.6 (80-100) fL MCH 29.9 (25-34) pg MCHC 33.0 (32-36) g/dL RDW Std Deviation 45.8 (36.4-46.3) fL RDW Coeff of Amado 13.7 (11.5-14.5) % Plt Count 146 (130-400) K/uL MPV 9.9 (7.4-10.4) fL Absolute Nucleated RBC 0.03 H (0-0) K/uL Nucleated RBC % (auto) 0.4 % Neutrophils % (Manual) 72.3 % Lymphocytes % (Manual) 6.9 % Monocytes % (Manual) 8.6 % Basophils % (Manual) 0.9 % Metamyelocytes % (Man) 5.2 % Myelocytes % (Man) 5.2 % Blast Cells % (Manual) 0.9 % Neutrophils # (Manual) 5.18 (1.4-6.5) K/uL Total Absolute Neuts 5.18 (1.4-6.5) K/uL Lymphocytes # (Manual) 0.49 L (1.2-3.4) K/uL Total Abs Lymphocytes 0.49 L (1.2-3.4) K/uL Monocytes # (Manual) 0.62 H (0.11-0.59) K/uL Basophils # (Manual) 0.06 (0-0.2) K/uL Metamyelocytes # (Man) 0.37 H (0-0) K/uL Myelocytes # (Manual) 0.37 H (0-0) K/uL Blast Cells # (Man) 0.06 H (0-0) K/uL Blood Smear Review Pending Dohle Bodies 1+ Sodium 145 (136-145) mmol/L Potassium 3.5 (3.5-5.1) mmol/L Chloride 114 H (98-107) mmol/L Carbon Dioxide 25 (21-32) mmol/L Anion Gap 6.0 (3-11) BUN 4 L (7-18) mg/dl Creatinine 0.66 (0.6-1.2) mg/dl Est Cr Clr Drug Dosing 101.4 ml/min Est GFR ( Amer) 121.1 Est GFR (Non-Af Amer) 104.5 BUN/Creatinine Ratio 5.6 L (10-20) Glucose 91 (70-99) mg/dl Calcium 9.0 (8.5-10.1) mg/dl Magnesium 2.0 (1.8-2.4) mg/dl Medications Administered Current Inpatient Medications Acetaminophen (Acetaminophen 325 Mg Tab) 650 mg PO Q4H PRN PRN Reason: Pain or Fever Stop: 01/30/20 23:14 Last Admin: 01/04/20 08:08 Dose: 650 mg Documented by: Aspirin (Aspirin 81 Mg Ectab) 81 mg PO DAILY SNOW Stop: 01/31/20 08:59 Last Admin: 01/04/20 08:08 Dose: 81 mg Documented by: Docusate Sodium (Docusate Sodium 100 Mg Cap) 100 mg PO BID PRN PRN Reason: Constipation Stop: 01/31/20 20:59 Enoxaparin Sodium (Enoxaparin Inj 40 Mg/0.4 Ml Syr) 40 mg SQ Q24H [facility] Stop: 01/31/20 08:59 Last Admin: 01/04/20 08:09 Dose: 40 mg Documented by: Escitalopram Oxalate (Escitalopram Oxalate 20 Mg Tab) 20 mg PO [facility] Stop: 01/31/20 20:59 Last Admin: 01/03/20 22:00 Dose: 20 mg Documented by: Sodium Chloride (Nss 1000ml) 1,000 mls @ 125 mls/hr IV .Q8H [facility] Stop: 01/30/20 23:14 Last Admin: 01/04/20 01:13 Dose: 125 mls/hr Documented by: Cefepime HCl 2,000 mg/ Syringe 20 mls @ 5 mls/min IV Q8H [facility]; Protocol Stop: 01/08/20 03:59 Last Admin: 01/04/20 04:13 Dose: 5 mls/min Documented by: Levothyroxine Sodium (Levothyroxine Sodium 25 Mcg Tablet) [facility] Stop: 01/31/20 06:29 Last Admin: 01/04/20 06:08 Dose: 25 mcg Documented by: Loratadine (Loratadine 10 Mg Tab) 10 mg PO [facility] Stop: 01/31/20 20:59 Last Admin: 01/03/20 22:01 Dose: 10 mg Documented by: Miscellaneous Information (Cefepime Consult Active) 1 ea N/A UD PRN PRN Reason: Consult Stop: 01/30/20 23:35 Multivitamins/Minerals (Calcium 600mg + Vit D 400 Iu Tab) 2 tab PO [facility] Stop: 01/31/20 20:59 Last Admin: 01/03/20 22:01 Dose: 2 tab Documented by: Multivitamins/Minerals (Cerovite Adv Formula Tab) 1 tab PO [facility] Stop: 01/31/20 20:59 Last Admin: 01/03/20 22:00 Dose: 1 tab Documented by: Nitroglycerin (Nitroglycerin Sl 0.4 Mg/Tab Tab) 0.4 mg SL UD PRN PRN Reason: Chest Pain Stop: 01/30/20 23:14 Ondansetron HCl (Ondansetron 4 Mg Od Tab) 8 mg PO Q8H PRN PRN Reason: Nausea Oxycodone HCl (Oxycodone Hcl Ir 5 Mg Tab (Immediate Release)) 5 mg PO Q6H PRN PRN Reason: Pain Stop: 01/14/20 23:14 Pantoprazole Sodium (Pantoprazole 40 Mg Tab) 40 mg PO HS SNOW Stop: 01/31/20 20:59 Last Admin: 01/03/20 21:59 Dose: 40 mg Documented by: Prochlorperazine (Prochlorperazine Maleate 10 Mg Tab) 10 mg PO Q6H PRN PRN Reason: Nausea Stop: 01/30/20 23:14 Trazodone HCl (Trazodone Hcl 50 Mg Tab) 50 mg PO HS PRN PRN Reason: Sleep Stop: 01/30/20 23:14 Last Admin: 01/03/20 21:59 Dose: 50 mg Documented by:
[2020-01-04 08:05] LABS: Hematocrit (blood only) 26.1 % (37-47); Hemoglobin 8.6 g/dL (12.0-16.0); Mean Corpuscular Hemoglobin 29.9 pg (25-34); Mean Corpuscular Volume 90.6 fL (80-100); Mean Platelet Volume 9.9 fL (7.4-10.4); Nucleated RBC # (auto) 0.03 K/uL (0-0); Nucleated RBC % (auto) 0.4 %; Platelet Count 146 K/uL (130-400); RDW Coefficient of Variation 13.7 % (11.5-14.5); RDW Standard Deviation 45.8 fL (36.4-46.3); Red Blood Count 2.88 M/uL (4.2-5.4); White Blood Count 7.17 K/uL (4.8-10.8)
[2020-01-04] MEDS: ASPIRIN 81 MG ECTAB PO SCH (08:08)
[2020-01-04] MEDS: ENOXAPARIN INJ 40 MG/0.4 ML SYR SQ SCH (08:09)
--- NOTE | 2020-01-04 08:22 | Surgery Progress Note ---
Date of Service January 04, 2020 Assessment & Plan (1) Bacteremia due to Enterobacter species: POD A-port removal can f/u in clinic prn ok to shower Admission and Anticipated Discharge Date Admission Date: December 31, 2019 Supervising Physician Co-Signing Physician Notes I saw and evaluated the patient with Pramod Cobb PA-C and agree with the assessment and plan. 49 yo female POD#1 port removal -No signs of bleeding -Remove dressing tomorrow, leave steri-strips in place -Can follow up with me or Dr. Moore PRN Subjective no complaints from port removal Physical Exam Chest (Breasts): Additional Comments: right shoulder dressing clean, dry Results & Data ([facility]) Vital Signs (Past 12 Hours) Vital Signs Temp Pulse Pulse Resp BP Pulse Ox 01/04/20 04:00 36.7 C 68 20 108/65 94 01/03/20 23:52 36.7 C 87 20 109/64 95 01/03/20 22:20 79 PG Care Time/CCT Total # of Minutes Spent Total Time Spent with Patient: Total time spent is greater than 50% in coordination of care (as documented) at patient's floor/unit and/or counseling patient: Coding Level of Care Code None Diagnoses Bacteremia due to Enterobacter species R78.81; B96.89
[2020-01-04 08:35] LABS: Dohle Bodies 1+
[2020-01-04 08:39] LABS: BUN Creatinine Ratio 5.6 (10-20); Creatinine Clr Calc Pharmacy 101.4 ml/min; Est GFR (African American) 121.1; Est GFR (Non-African American) 104.5; Potassium 3.5 mmol/L (3.5-5.1)
[2020-01-04 08:40] LABS: ALC (manual) 0.49 K/uL (1.2-3.4); ANC (manual) 5.18 K/uL (1.4-6.5); Basophils # (manual) 0.06 K/uL (0-0.2); Basophils % (manual) 0.9 %; Blast # (manual) 0.06 K/uL (0-0); Blast Cells % (manual) 0.9 %; Lymphocytes # (manual) 0.49 K/uL (1.2-3.4); Lymphocytes % (manual) 6.9 %; Metamyelocytes # (manual) 0.37 K/uL (0-0); Metamyelocytes % (manual) 5.2 %; Monocytes # (manual) 0.62 K/uL (0.11-0.59); Monocytes % (manual) 8.6 %; Myelocytes # (manual) 0.37 K/uL (0-0); Myelocytes % (manual) 5.2 %; Neutrophils # (manual) 5.18 K/uL (1.4-6.5); Neutrophils % (manual) 72.3 %
[2020-01-04] MEDS ORDERED: POTASSIUM CHLORIDE 20 MEQ TABCR PO STA (09:02)
--- NOTE | 2020-01-04 09:54 | Discharge Summary ---
Date of Service January 04, 2020 Admission HPI Per Admitting Provider This 49-year-old female with past medical history significant for recent diagnosis of breast cancer status post surgery and chemo, family history of bicuspid aortic valve, comes with headache and fever. The patient has first chemo last week. Last night she developed a headache and fevers, no neck pain, no cough, no shortness of breath, no nausea, no vomiting, no diarrhea, no abdominal pain, no chest pain. No earache, no runny nose, no sore throat, no odynophagia. Appetite is okay. No rash. Normal bladder movements. No burning micturition. She says she is constipated and last night when she was trying to move her bowels, she has some blood in the stool, but that is not unusual for her. She has hemorrhoids. Currently, her hemodynamics are stable. She has a mild temp spike in the ER. WBC 0.6. Sodium 132, potassium 3.4, magnesium 1.7. COVID-19 PCR negative. Chest x-ray, no acute process seen. Admission Exam Per Admitting Provider GENERAL: The patient is of moderate build, not in acute distress. VITAL SIGNS: T-max 37.6, pulse 88, respiratory rate 16, blood pressure 121/69, oxygen 98% on room air. HEENT: Pupils equal, round, and reactive to light. Oral mucosa moist. NECK: Supple, no neck masses seen. CARDIOVASCULAR: S1, S2 heard, regular rate and rhythm, no murmur, no gallop. RESPIRATORY SYSTEM: Normal AP diameter. No accessory muscle use. No wheezing, no crackles. ABDOMEN: Soft, bowel sounds present, nontender. No distention. CENTRAL NERVOUS SYSTEM: Cranial nerves II-XII grossly intact. Nonfocal. EXTREMITIES: No edema, no erythema. Principal Diagnosis Neutropenic fever Enterobacter bacteremia Discharge Exam Physical Exam: Lying in bed comfortably Constitutional: well developed, well nourished, no acute distress Eyes: PERRL, EOMI, conjunctivae normal, anicteric sclerae ENMT: external ear and nose normal, oropharynx normal Chest: Port removed at the right upper chest, clean dressings applied, no signs of swelling, drainage or erythema Neck: trachea midline, no thyromegaly Respiratory: normal respiratory effort; no respiratory distress Auscultation: lungs clear to auscultation bilaterally Cardiovascular: Rate/Rhythm: regular rate and regular rhythm Heart Sounds: no murmur Extremities: no edema Gastrointestinal (Abdomen): Inspection/Auscultation: abdomen normal to inspection; abdomen not distended Percussion/Palpation: abdomen soft; abdomen nontender Neurologic: No facial asymmetry, speech fluent, moves all extremities; no focal motor deficits Psychiatric: A+Ox3, euthymic affect Discharge Data Allergies Allergy/AdvReac Type Severity Reaction Status Date / Time naproxen Allergy Intermediate RASH Verified 12/31/19 18:53 Sulfa (Sulfonamide Allergy Intermediate RASH Verified 12/31/19 18:53 Antibiotics) Consultations 12/31/19 18:56 ED Decision to Admit Stat 12/31/19 23:15 Consult Case Management - Discharge Planning Routine 01/01/20 11:33 Consult Infectious Diseases Routine 01/03/20 08:17 Consult General Surgery Routine Procedures Performed Operation Date: 01/03/20 17:15 Actual Procedures p Infusaport Removal - Tarun Miguel, Hospital Course (1) Neutropenic fever: Gram negative bacteremia Enterobacter cloacae bacteremia Pt diagnosed with left breast cancer in September 2019 followed by lumpectomy and first chemotherapy that was given on 12/23 Admitted with the fever and noted to have neutropenia with generalized weakness She has an a-port over her right upper chest wall on admission Started with intravenous cefepime and vancomycin, stopped vanco 1 out of 2 blood culture grew gram-negative bacilli-positive for Enterobacter cloacae Her neutrophil count is improving and her white count is better Continue current antibiotic -cefepime while inpt [facility] ID consulted - recommend to continue cefepime for now, port removal, and discharge on Cipro 500 twice daily for next 10 days Surgery consulted for port removal, port was removed on January 02 Pt reports hx of diverticulitis 2 yrs ago Now reports frequent small BMs which are liquid, will obtain stool culture and c. diff Currently no abd. pain, poor appetite C. difficile is negative (2) Breast cancer: Diagnosed in September 2019 and is status post left breast lumpectomy She has a port over right upper chest placed on December [address] Rita Moore She got her first chemo last Tuesday, 12/23 Port now removed as above Dr. Treviño aware Patient has blasts on her CBC today, January 03 Discussed with her oncologist, Dr. Treviño, this is due to Neulasta and is expected, it is okay for patient to be discharged (3) Depression: No acute issue Continue citalopram (4) Hypothyroidism: Continue supplement Total Time Total Time Spent Total Time Spent (In Minutes): 40 Total Time Includes: Examination of the Patient, Discharge Planning, Medication Reconciliation and Communication With Other Providers Discharge Plan Discharge Items Patient Disposition: Home - Self-Care Reason For Visit: FEVER Discharge Diagnosis: Neutropenic fever Enterobacter bacteremia Activity: Per Instructions section Bathing Comment: ok to shower, remove dressings tomorrow, leave Steri-Strips in place Non-emergency contact: Primary Care Provider and Oncologist Call non-emergency contact if: you have any medication questions and your symptoms worsen Follow-up/Referrals: Tarun Miguel, [Physician] - (Call the office if you have any questions or concerns about your incision) Rosy Treviño MD [Primary Care Provider] - Diet: Regular Addtl Attending Provider Instructions: Take antibiotic, ciprofloxacin, as prescribed twice a day for next 10 days. Follow-up with your primary care doctor within 1 week. At that time primary care doctor will check your final results of blood cultures. Follow-up with your oncologist, Dr. Treviño. Pending Studies at Discharge: Yes Studies:: Final results of repeat blood cultures Stand-Alone Forms: [facility] [employer], Smoking Cessation Medications and DC Order Prescriptions: New ciprofloxacin HCl 500 mg tablet 500 mg PO Q12H 10 Days Qty: 20 RF: 0 Continued trazodone 50 mg tablet 50 mg PO HS PRN (Reason: Sleep) RF: 0 ondansetron HCl 8 mg tablet 8 mg PO Q8H PRN (Reason: Nausea) RF: 0 prochlorperazine maleate 10 mg tablet 10 mg PO Q6H PRN (Reason: Nausea) RF: 0 aspirin [Aspirin Low Dose] 81 mg Tablet,Delayed Release (Dr/Ec) 81 mg PO DAILY RF: 0 levothyroxine 25 mcg tablet 25 mcg PO QAM RF: 0 pantoprazole 40 mg tablet,delayed release (DR/EC) 40 mg PO DAILY RF: 0 escitalopram oxalate 20 mg tablet 20 mg PO DAILY RF: 0 yxvfbjameccd-Xs-zgnq-minerals 18-0.4 mg Tablet 1 tab PO DAILY RF: 0 calcium carbonate-vitamin D3 [Calcium 600 + D(3)] 600 mg(1,500mg) -400 unit Tablet 2 tab PO DAILY RF: 0 Discharge Orders: Discharge Order (Routine); Ordered 01/04/20 Ordered By: Chong Pimentel Admission Data Admit Date/Time: 12/31/19 20:08 Attending Provider: Chong Pimentel Admit Provider: Adan Rasmussen Primary Care Provider: Rosy Treviño Other Providers: Simba Jacobs ; Adan Rasmussen ; Tank Nguyen ; Kamilah Smalls ; Francisco Carney I. ; Cliff Hernandez II ; France Mantilla ; Oleg James ; Louie Crooks ; Pan Rocha ; Obed Copeland ; Pramod Cobb Jr ; Siva Ervin ; Quinton Gonzalez ; Daiana Mccarthy ; Tarun Miguel ; Claudio Rios Other Interventions: Discharge Summary Assessment (RN) Last Done: 01/04/20 09:16
== END 2020-01-04 10:16 | disposition home or self-care (01) | DRG 809 ==
LOC: ED 17:13 → SUATTDRO 20:08 → 2W 22:34

== ENCOUNTER 2020-12-21 14:09 | Observation (INO) ==
[2020-12-21] MEDS ORDERED: SODIUM CHLORIDE 0.9% 500 ML IV STA (14:37)
--- NOTE | 2020-12-21 14:47 | Emergency Department Note ---
History of Present Illness General Chief complaint: Fever Stated complaint: FEVER,HEADACHE Time Seen by Provider: 12/21/20 14:25 Source: patient History of Present Illness Provider complaint: Fever Onset (ago): hour(s) Location: head Pain Consistency: + now resolved Maximum Pain Intensity: 0 Quality: + other (Temperature 103.6) Relieved By: + medication (Antipyretic) Associated symptoms: + fever/chills and + headaches; no chest pain, no cough, no nausea/vomiting or no shortness of breath This is a 50-year-old female with a history of breast cancer status post completion of her treatment with chemotherapy and radiation status post lumpectomy and radical axillary lymph node dissection presenting with fever since last night. The patient states that her temperature was 103.6. She denies any other significant symptoms. She does have a mild headache. She states that she had a similar fever back in September and was diagnosed with a UTI. She then had another similar fever back in October and had a Covid test which was negative. She was also tested for other things such as tickborne illness at that time and that was negative. She did have a UTI again that time. She was treated both times with Macrobid. Earlier this month she had a CT scan of the abdomen pelvis with p.o. and IV contrast which showed no acute abnormalities. She did have a prior history of diverticulitis. She feels tired but otherwise denies muscle aches or malaise. She has no significant pain other than just a jamal her right hip bone. She states that she has been moving out of her house and lifting a lot of boxes last week and her pain developed 3 days ago. She states it is minor and only hurts when she takes a deep breath while sitting up. When she is lying down takes a deep breath she does not have pain or when she palpates the area she has no pain. She has not been vomiting and her bowel movements have been relatively good until just prior to arrival she had a little bit of diarrhea. She denies any urinary symptoms. She has had no rash or known tick bites but she does have a dog and 2 cats. She denies any chest pain or shortness of breath. Home Medications Medication Instructions Recorded Confirmed Type calcium carbonate 600 mg (1,500 2 tab PO PM 12/31/19 12/21/20 History mg)-vitamin D3 400 unit tablet (Calcium 600 + D(3)) escitalopram oxalate 20 mg tablet 20 mg PO PM 12/31/19 12/21/20 History levothyroxine 25 mcg tablet 25 mcg PO QAM 12/31/19 12/21/20 History gqjppsahixad-Xg-mfqm-minerals 18 1 tab PO PM 12/31/19 12/21/20 History mg-0.4 mg tablet pantoprazole 40 mg tablet,delayed 40 mg PO PM 12/31/19 12/21/20 History release trazodone 50 mg tablet 50 mg PO HS PRN 12/31/19 12/21/20 History betamethasone valerate 0.12 % 1 applic TOPICAL DAILY PRN g 07/08/20 12/21/20 History topical foam calcipotriene 0.005 % topical cream 1 applic TOPICAL BID 07/08/20 12/21/20 H istory desonide 0.05 % topical cream 1 applic TOPICAL BID 07/08/20 12/21/20 History ketoconazole 2 % shampoo 1 applic TOPICAL 3XWK PRN ml 07/08/20 12/21/20 History biotin 5,000 mcg disintegrating 10,000 mcg PO PM 08/11/20 12/21/20 History tablet gabapentin 100 mg capsule 300 mg PO TID cap 08/11/20 12/21/20 History bupropion HCl 300 mg 24 hr tablet, 300 mg PO QAM 09/01/20 12/21/20 History extended release (Wellbutrin XL) acetaminophen 500 mg tablet 1,000 mg PO Q6H PRN 12/21/20 12/21/20 History (Tylenol Extra Strength) Allergies Allergy/AdvReac Type Severity Reaction Status Date / Time naproxen Allergy Intermediate RASH Verified 12/21/20 14:59 Sulfa (Sulfonamide Allergy Intermediate RASH Verified 12/21/20 14:59 Antibiotics) Past Med/Surg History Medical History Bacteremia due to Enterobacter species Depression Diverticulitis History of chemotherapy 12/24/2019-06/25/2020 (Cyclophosphamide & Adriamycin x 4 Cycles, Paclitaxel/Abraxane x 12 Cycles) Hypokalemia Hypothyroidism Malignant neoplasm of upper-outer quadrant of left breast in female, estrogen receptor positive (10/04/19) Neutropenic fever Resolved (chemo related) Port-A-Cath in place (02/19/20) 12/12/2019 (By Dr. Rita Moore, removed and replaced by Dr. Garza) Vitiligo Surgical History History of bladder repair surgery (05/08/19) vaginal sling procedure for stress incontinence History of colonoscopy (01/02/18) History of endometrial ablation (2006) History of lumpectomy of left breast (11/21/19) and SLN Biopsy (positive) Status post tubal ligation (2006) Family History Father Prostate cancer, Onset Age: 60 Prostatectomy Mother Hepatitis C Hypothyroidism Grandmother (Paternal) Oral cancer Aunt Breast cancer, Onset Age: 60 Brother No problems noted. Brother No problems noted. Brother No problems noted. Son No problems noted. Daughter No problems noted. Denies family history of Ovarian cancer Colorectal cancer Social History Smoking Status: Never smoker Tobacco Type: Cigarettes packs per day: 1; Years Smoked: 20; Second Hand Exposure: Yes (Mother and Father smoke in home ); Hx Alcohol Use: No Hx Substance Use: No Preferred Language: Ghanaian Communication Ability: Effective Visual Impairment: No Limitations Hearing Ability: Use of Hearing Aid Help Desk Agent Required: No Beliefs That Will Affect Care: None marital status: Legally Current Living Situation: Parent Current Living Situation Comment: daughter current occupational status: employed 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 and A total of 10 systems reviewed and were otherwise negative Physical Exam Vital Signs Vital Signs - 24 hr 12/21/20 14:33 12/21/20 14:35 12/21/20 16:09 Temperature 36.7 C 37.4 C Temperature Source Oral Pulse Rate 79 86 93 H Pulse Rate from SpO2 Sensor 92 H Respiratory Rate 22 16 22 Blood Pressure 115/60 115/60 108/82 Blood Pressure Mean 78 78 90 Pulse Oximetry 98 94 Sepsis Recent Fever Within 48 Hours No Sepsis New/Unexplained Change in Mental Status No Sepsis Action Taken by Nursing No Action Required Constitutional: Vital signs reviewed. Well-appearing. Eyes: Pupils are equal round reactive to light. Conjunctiva are noninjected. ENT: Pharynx is clear without erythema or exudate. Mucous membranes are moist. Neck supple without meningeal signs. Respiratory: Clear to auscultation bilaterally. Breath sounds are equal bilaterally. Cardiovascular: Regular rate and rhythm. No rubs or gallops. GI: Soft, nondistended and nontender. Bowel sounds are present. Musculoskeletal: No peripheral edema. No lower extremity tenderness. No CVA tenderness. No tenderness to the right iliac crest or signs of erythema or increased warmth to the general area. Port in the right upper chest wall without any evidence of infection. Integumentary: No cyanosis. or jaundice. Neurological: The patient is awake and alert. No focal deficits. Psychiatric: Normal affect. Not anxious appearing. Course Administered Medications Ceftriaxone Sodium (Rocephin) 2,000 mg in 70 mls @ 140 mls/hr IV NOW STA Stop: 12/21/20 16:50 Last Admin: 12/21/20 16:39 Dose: 140 mls/hr Documented by: [id number] Discontinued Medications Acetaminophen (Acetaminophen 500 Mg Tab) 1,000 mg PO NOW STA Stop: 12/21/20 16:14 Last Admin: 12/21/20 16:39 Dose: 1,000 mg Documented by: [id number] Sodium Chloride (Nss) 500 mls @ 999 mls/hr IV .Q31M STA Stop: 12/21/20 15:07 Last Infusion: 12/21/20 16:13 Dose: 0 mls/hr Documented by: [id number] Admin: 12/21/20 15:43 Dose: 999 mls/hr Documented by: [id number] Medical Decision Making Differential Diagnosis Fever of unknown origin, tickborne illness, anaplasmosis, Lyme disease, UTI, pneumonia, bacteremia Medical Records Attestation: I reviewed the patient's medical records. I did perform a limited focused review of portions of the patient's old chart on the electronic medical record. The patient was hospitalized last year for neutropenic fever and Enterobacter bacteremia. Home Medications Current Medication List: was personally reviewed by me Laboratory Data Attestation: I reviewed the patient's lab results. Result diagrams: 12/21/20 14:55 12/21/20 14:55 Lab Results 12/21/20 12/21/20 12/21/20 Range/Units 14:55 14:55 14:55 WBC 9.25 (4.8-10.8) K/uL RBC 3.53 L (4.2-5.4) M/uL Hgb 11.4 L (12.0-16.0) g/dL Hct 35.2 L (37-47) % MCV 99.7 (80-100) fL MCH 32.3 (25-34) pg MCHC 32.4 (32-36) g/dL RDW Std Deviation 51.3 H (36.4-46.3) fL RDW Coeff of Amado 14.1 (11.5-14.5) % Plt Count 186 (130-400) K/uL MPV 9.7 (7.4-10.4) fL Immature Gran % (Auto) 0.1 % Neut % (Auto) 86.7 % Lymph % (Auto) 8.9 % Anson % (Auto) 4.2 % Eos % (Auto) 0.0 % Baso % (Auto) 0.1 % Neut # (Auto) 8.02 H (1.4-6.5) K/uL Lymph # (Auto) 0.82 L (1.2-3.4) K/uL Anson # (Auto) 0.39 (0.11-0.59) K/uL Eos # (Auto) 0.00 (0-0.5) K/uL Baso # (Auto) 0.01 (0-0.2) K/uL Immature Gran # (Auto) 0.01 (0.00-0.02) K/uL Toxic Vacuolation 1+ ESR (0-20) mm/hr Sodium 134 L (136-145) mmol/L Potassium 3.4 L (3.5-5.1) mmol/L Chloride 101 (98-107) mmol/L Carbon Dioxide 24 (21-32) mmol/L Anion Gap 9.0 (3-11) BUN 10 (7-18) mg/dl Creatinine 1.00 (0.6-1.2) mg/dl Est Cr Clr Drug Dosing 66.2 ml/min Est GFR ( Amer) 76.6 ml/min Est GFR (Non-Af Amer) 66.1 ml/min BUN/Creatinine Ratio 10.3 (10-20) Glucose 112 H (70-99) mg/dl Lactate (0.4-2.0) mmol/L Calcium 8.5 (8.5-10.1) mg/dl Total Bilirubin 0.5 (0.2-1) mg/dl AST 15 (15-37) U/L ALT 20 (12-78) U/L Alkaline Phosphatase 67 (45-117) U/L C-Reactive Protein 29.40 H (0-0.29) mg/dl Total Protein 6.8 (6.4-8.2) gm/dl Albumin 2.9 L (3.4-5.0) gm/dl Globulin 3.9 (2.5-4.0) gm/dl Albumin/Globulin Ratio 0.7 L (0.9-2) Lipase 72 L (73-393) U/L Urine Color Urine Appearance (Clear) Urine pH (4.5-7.5) Ur Specific [place] (1.000-1.030) Urine Protein (Negative) Urine Glucose (UA) (Negative) Urine Ketones (Negative) Urine Blood (Negative) Urine Nitrite (Negative) Urine Bilirubin (Negative) Urine Urobilinogen (Negative) Ur Leukocyte Esterase (Negative) Urine WBC (Auto) (0-5) /hpf Urine RBC (Auto) (0-4) /hpf U Hyaline Cast (Auto) (0-5) /lpf U Epithel Cells (Auto) (0-5) /lpf Urine Bacteria (Auto) (Negative) Ur Renal Epithelial Cell (0-5) /lpf Anaplasma Smear See Comment Lyme Disease IgG Ab Negative (Negative) Lyme Disease IgM Ab Negative (Negative) Influ A Molecular Assay (Negative) Influ B Molecular Assay (Negative) 12/21/20 12/21/20 12/21/20 Range/Units 14:55 14:55 14:56 WBC (4.8-10.8) K/uL RBC (4.2-5.4) M/uL Hgb (12.0-16.0) g/dL Hct (37-47) % MCV (80-100) fL MCH (25-34) pg MCHC (32-36) g/dL RDW Std Deviation (36.4-46.3) fL RDW Coeff of Amado (11.5-14.5) % Plt Count (130-400) K/uL MPV (7.4-10.4) fL Immature Gran % (Auto) % Neut % (Auto) % Lymph % (Auto) % Anson % (Auto) % Eos % (Auto) % Baso % (Auto) % Neut # (Auto) (1.4-6.5) K/uL Lymph # (Auto) (1.2-3.4) K/uL Anson # (Auto) (0.11-0.59) K/uL Eos # (Auto) (0-0.5) K/uL Baso # (Auto) (0-0.2) K/uL Immature Gran # (Auto) (0.00-0.02) K/uL Toxic Vacuolation ESR 100 H (0-20) mm/hr Sodium (136-145) mmol/L Potassium (3.5-5.1) mmol/L Chloride (98-107) mmol/L Carbon Dioxide (21-32) mmol/L Anion Gap (3-11) BUN (7-18) mg/dl Creatinine (0.6-1.2) mg/dl Est Cr Clr Drug Dosing ml/min Est GFR ( Amer) ml/min Est GFR (Non-Af Amer) ml/min BUN/Creatinine Ratio (10-20) Glucose (70-99) mg/dl Lactate 0.7 (0.4-2.0) mmol/L Calcium (8.5-10.1) mg/dl Total Bilirubin (0.2-1) mg/dl AST (15-37) U/L ALT (12-78) U/L Alkaline Phosphatase (45-117) U/L C-Reactive Protein (0-0.29) mg/dl Total Protein (6.4-8.2) gm/dl Albumin (3.4-5.0) gm/dl Globulin (2.5-4.0) gm/dl Albumin/Globulin Ratio (0.9-2) Lipase (73-393) U/L Urine Color Urine Appearance (Clear) Urine pH (4.5-7.5) Ur Specific [place] (1.000-1.030) Urine Protein (Negative) Urine Glucose (UA) (Negative) Urine Ketones (Negative) Urine Blood (Negative) Urine Nitrite (Negative) Urine Bilirubin (Negative) Urine Urobilinogen (Negative) Ur Leukocyte Esterase (Negative) Urine WBC (Auto) (0-5) /hpf Urine RBC (Auto) (0-4) /hpf U Hyaline Cast (Auto) (0-5) /lpf U Epithel Cells (Auto) (0-5) /lpf Urine Bacteria (Auto) (Negative) Ur Renal Epithelial Cell (0-5) /lpf Anaplasma Smear Lyme Disease IgG Ab (Negative) Lyme Disease IgM Ab (Negative) Influ A Molecular Assay Negative (Negative) Influ B Molecular Assay Negative (Negative) 12/21/20 Range/Units 15:33 WBC (4.8-10.8) K/uL RBC (4.2-5.4) M/uL Hgb (12.0-16.0) g/dL Hct (37-47) % MCV (80-100) fL MCH (25-34) pg MCHC (32-36) g/dL RDW Std Deviation (36.4-46.3) fL RDW Coeff of Amado (11.5-14.5) % Plt Count (130-400) K/uL MPV (7.4-10.4) fL Immature Gran % (Auto) % Neut % (Auto) % Lymph % (Auto) % Anson % (Auto) % Eos % (Auto) % Baso % (Auto) % Neut # (Auto) (1.4-6.5) K/uL Lymph # (Auto) (1.2-3.4) K/uL Anson # (Auto) (0.11-0.59) K/uL Eos # (Auto) (0-0.5) K/uL Baso # (Auto) (0-0.2) K/uL Immature Gran # (Auto) (0.00-0.02) K/uL Toxic Vacuolation ESR (0-20) mm/hr Sodium (136-145) mmol/L Potassium (3.5-5.1) mmol/L Chloride (98-107) mmol/L Carbon Dioxide (21-32) mmol/L Anion Gap (3-11) BUN (7-18) mg/dl Creatinine (0.6-1.2) mg/dl Est Cr Clr Drug Dosing ml/min Est GFR ( Amer) ml/min Est GFR (Non-Af Amer) ml/min BUN/Creatinine Ratio (10-20) Glucose (70-99) mg/dl Lactate (0.4-2.0) mmol/L Calcium (8.5-10.1) mg/dl Total Bilirubin (0.2-1) mg/dl AST (15-37) U/L ALT (12-78) U/L Alkaline Phosphatase (45-117) U/L C-Reactive Protein (0-0.29) mg/dl Total Protein (6.4-8.2) gm/dl Albumin (3.4-5.0) gm/dl Globulin (2.5-4.0) gm/dl Albumin/Globulin Ratio (0.9-2) Lipase (73-393) U/L Urine Color Yellow Urine Appearance Clear (Clear) Urine pH 5.5 (4.5-7.5) Ur Specific [place] 1.009 (1.000-1.030) Urine Protein 1+ H (Negative) Urine Glucose (UA) Negative (Negative) Urine Ketones Negative (Negative) Urine Blood 1+ H (Negative) Urine Nitrite Negative (Negative) Urine Bilirubin Negative (Negative) Urine Urobilinogen Negative (Negative) Ur Leukocyte Esterase 2+ H (Negative) Urine WBC (Auto) >30 H (0-5) /hpf Urine RBC (Auto) 5-10 H (0-4) /hpf U Hyaline Cast (Auto) 1-5 (0-5) /lpf U Epithel Cells (Auto) >30 H (0-5) /lpf Urine Bacteria (Auto) Negative (Negative) Ur Renal Epithelial Cell 5-10 H (0-5) /lpf Anaplasma Smear Lyme Disease IgG Ab (Negative) Lyme Disease IgM Ab (Negative) Influ A Molecular Assay (Negative) Influ B Molecular Assay (Negative) Imaging Data Radiologist's Impression: Chest X-Ray 12/21/20 15:52 SINGLE VIEW CHEST CLINICAL HISTORY: Fever. FINDINGS: An AP, portable, upright chest radiograph is compared to study dated 12/31/2019. A right internal jugular central venous infusion port is new from previous. The cardiomediastinal silhouette is unremarkable. The lungs and pleura l spaces are clear. No pneumothorax is seen. The bony thorax is grossly intact. IMPRESSION: No active disease in the chest. ACT 112: Negative or not required by law. Electronically signed by: Louie Rojo M.D. 12/21/2020 4:21 PM MDM Narrative I did evaluate the patient as noted above. The patient is presenting with a fever since last night. She has had similar fevers in September and October but had urinary symptoms at that time and was diagnosed with UTI each time. She does complain of some right-sided abdominal pain just above her hip bone but has no tenderness to that area. She thinks she strained a muscle while moving boxes. She has a headache but no meningeal signs. My suspicion for meningitis or encephalitis is very low at this time. I do not feel lumbar puncture is indicated currently. IV access was established. I did place an order for continuous cardiac monitoring. The monitor showed normal sinus rhythm at a rate of 86 bpm. I did order and personally reviewed the images of the patient's chest x-ray as described above. I did order a urine analysis. She does have leukocyte esterase as well as greater than 30 WBCs but she also has greater than 30 epithelial cells and no nitrites or bacteria. I did order and review the patient's blood work as noted in the electronic medical record. CBC shows a white count of 9.25 with a slight left shift without bands. Her hemoglobin is 11.4. Platelet count is 186. Electrolytes are unremarkable other than a sodium 134 potassium of 3.4. Her lactate is 0.7. C-reactive protein and ESR are both elevated at 29.4 and 100 respectively. Anaplasmosis testing is negative. Rapid flu test is negative. Lyme testing is negative. Covid testing is pending. I did discuss the test results with the patient. I did recommend hospitalization for potential bacteremia given her elevated ESR and CRP as well as high fevers at home. I did treat her empirically with ceftriaxone after reviewing her prior cultures. I did discuss the case with the hospitalist and shoe parts caser. I did discuss her findings with her who is a physician here with her permission. Impression & Plan Bacteremia, Acute UTI Discharge Plan Visit Data Chief Complaint: Fever Stated Complaint: FEVER,HEADACHE ED Provider: Ivan Olmstead Discharge Problem: Bacteremia, Acute UTI Patient Disposition: Admitted As Inpatient Forms Stand Alone Forms: My [facility] Prescriptions Prescriptions: No Action betamethasone valerate 0.12 % foam 1 applic topical DAILY PRN (Reason: Flares) RF: 0 ketoconazole 2 % shampoo 1 applic topical 3XWK PRN (Reason: scalp) RF: 0 desonide 0.05 % cream 1 applic topical BID RF: 0 calcipotriene 0.005 % cream 1 applic topical BID RF: 0 gabapentin 100 mg capsule 300 mg PO TID RF: 0 biotin 5,000 mcg tablet,disintegrating 10,000 mcg PO PM RF: 0 bupropion HCl [Wellbutrin XL] 300 mg tablet extended release 24 hr 300 mg PO QAM RF: 0 trazodone 50 mg tablet 50 mg PO HS PRN (Reason: Sleep) RF: 0 levothyroxine 25 mcg tablet 25 mcg PO QAM RF: 0 pantoprazole 40 mg tablet,delayed release (DR/EC) 40 mg PO PM RF: 0 escitalopram oxalate 20 mg tablet 20 mg PO PM RF: 0 kuytbbxrlowa-Mg-aitn-minerals 18-0.4 mg Tablet 1 tab PO PM RF: 0 calcium carbonate-vitamin D3 [Calcium 600 + D(3)] 600 mg(1,500mg) -400 unit Tablet 2 tab PO PM RF: 0 acetaminophen [Tylenol Extra Strength] 500 mg Tablet 1,000 mg PO Q6H PRN (Reason: Pain) RF: 0 Referrals Referrals: Rosy Treviño MD [Primary Care Provider] -
[2020-12-21 15:06] LABS: Basophils # (auto) 0.01 K/uL (0-0.2); Basophils % (auto) 0.1 %; Hematocrit (blood only) 35.2 % (37-47); Hemoglobin 11.4 g/dL (12.0-16.0); Immature Granulocytes # (auto) 0.01 K/uL (0.00-0.02); Immature Granulocytes % (auto) 0.1 %; Lymphocytes # (auto) 0.82 K/uL (1.2-3.4); Lymphocytes % (auto) 8.9 %; Mean Corpuscular Hemoglobin 32.3 pg (25-34); Mean Corpuscular Hgb Conc 32.4 g/dL (32-36); Mean Corpuscular Volume 99.7 fL (80-100); Mean Platelet Volume 9.7 fL (7.4-10.4); Monocytes # (auto) 0.39 K/uL (0.11-0.59); Monocytes % (auto) 4.2 %; Neutrophils # (auto) 8.02 K/uL (1.4-6.5); Neutrophils % (auto) 86.7 %; Platelet Count 186 K/uL (130-400); RDW Coefficient of Variation 14.1 % (11.5-14.5); RDW Standard Deviation 51.3 fL (36.4-46.3); Red Blood Count 3.53 M/uL (4.2-5.4); White Blood Count 9.25 K/uL (4.8-10.8)
[2020-12-21 15:25] LABS: Toxic Vacuolation 1+
[2020-12-21 15:27] LABS: Albumin Level 2.9 gm/dl (3.4-5.0); BUN Creatinine Ratio 10.3 (10-20); Calcium 8.5 mg/dl (8.5-10.1); Creatinine Clr Calc Pharmacy 66.2 ml/min; Est GFR (African American) 76.6 ml/min; Est GFR (Non-African American) 66.1 ml/min; Potassium 3.4 mmol/L (3.5-5.1)
[2020-12-21 15:34] LABS: Influenza A virus by PCR Negative (Negative); Influenza B virus by PCR Negative (Negative)
[2020-12-21 15:34] LABS: Albumin Globulin Ratio 0.7 (0.9-2); Bilirubin,Total 0.5 mg/dl (0.2-1); C Reactive Protein 29.4 mg/dl (0-0.29); Globulin 3.9 gm/dl (2.5-4.0); Total Protein 6.8 gm/dl (6.4-8.2)
[2020-12-21 15:57] LABS: Appearance Urine Clear (Clear); Bacteria Urine Automated Negative (Negative); Bilirubin Urine Negative (Negative); Blood Urine 1+ (Negative); Color Urine Yellow; Epithelial Cell Urine Auto >30 /lpf (0-5); Glucose Urine UA Negative (Negative); Ketones Urine Negative (Negative); Leukocyte Esterase Urine 2+ (Negative); Nitrite Urine Negative (Negative); Protein Urine 1+ (Negative); Specific Gravity Urine 1.009 (1.000-1.030); Urobilinogen Urine Negative (Negative); WBC Urine Automated >30 /hpf (0-5); pH Urine 5.5 (4.5-7.5)
[2020-12-21] MEDS ORDERED: ACETAMINOPHEN 500 MG TAB PO STA (16:13)
[2020-12-21 16:18] LABS: Lyme Ab IgG w/WB Rflx Negative (Negative); Lyme Ab IgM w/WB Rflx Negative (Negative)
[2020-12-21] MEDS ORDERED: cefTRIAXone SODIUM 2,000 MG/70 ML BAG IV STA (16:21)
--- NOTE | 2020-12-21 16:22 | XRay Report ---
SINGLE VIEW CHEST CLINICAL HISTORY: Fever. FINDINGS: An AP, portable, upright chest radiograph is compared to study dated 12/31/2019. A right int ernal jugular central venous infusion port is new from previous. The cardiomediastinal silhouette is unremarkable. The lungs and pleural spaces are clear. No pneumothorax is seen. The bony thorax is juju ssly intact. IMPRESSION: No active disease in the chest. ACT 112: Negative or not required by law. Electronically signed by: Louie Rojo M.D. 12/21/2020 4:21 PM
[2020-12-21] MEDS ORDERED: POTASSIUM CHLORIDE CRTAB 20 MEQ TABCR PO STA (16:53)
--- NOTE | 2020-12-21 17:10 | History & Physical Report ---
Date of Service December 21, 2020 Assessment & Plan (1) Acute UTI: (2) Hypokalemia: (3) Breast cancer: (4) Hypothyroidism: (5) Depression: Plan: This is a 50-year-old female with a history of breast cancer status post completion of her treatment with chemotherapy and radiation, hypothyroidism, depression and other medical problems presenting with fever since yesterday. UTI Fever History of recurrent UTIs over the summer growing chen sensitive E coli Febrile intermittently since last evening - afebrile since arrival Does not meet sepsis criteria at admission, non-toxic appearance CXR, recent OP CT abd/pelvis without infection. Covid, flu, lyme all negative today. Anaplasma DNA pending WBC wnl, ESR 100, CRP 29.40, lactate wnl UA abnormal Started on empiric rocephin Follow urine and blood cultures Gentle IV fluids Hypokalemia Replaced Repeat BMP in AM Breast cancer - in remission Status post completion of her treatment with chemotherapy and radiation Follows with Dr. Treviño Hypothyroidism Continue levothyroxine Depression Continue Lexapro, Wellbutrin DVT Ppx: SQ Lovenox Code status: FULL PCP: [place] Dispo: Observation med tele Patient seen in collaboration with Dr. Dacosta. Please see addendum. History of Present Illness Chief Complaint: diarrhea Primary Care Provider: Rosy Treviño MD This is a 50-year-old female with a history of breast cancer status post completion of her treatment with chemotherapy and radiation, hypothyroidism, depression and other medical problems presenting with fever since yesterday. Tmax of 103.6. Also endorsing mild headaches and constipation. Had recent UTIs in September and October and was treated with Macrobid. Outpatient urine cultures grew chen sensitive E coli. No nausea, vomiting or dysuria. No lightheadedness, chest pain, SOB, dysuria, diarrhea. No rash or known tick bite. Earlier this month she had a CT scan of the abdomen pelvis with p.o. and IV contrast which showed no acute abnormalities. Allergies Allergy/AdvReac Type Severity Reaction Status Date / Time naproxen Allergy Intermediate RASH Verified 12/21/20 14:59 Sulfa (Sulfonamide Allergy Intermediate RASH Verified 12/21/20 14:59 Antibiotics) Home Medications Medication Instructions Recorded Confirmed Type calcium carbonate 600 mg (1,500 2 tab PO PM 12/31/19 12/21/20 History mg)-vitamin D3 400 unit tablet (Calcium 600 + D(3)) escitalopram oxalate 20 mg tablet 20 mg PO PM 12/31/19 12/21/20 History levothyroxine 25 mcg tablet 25 mcg PO QAM 12/31/19 12/21/20 History kabrdxdhwndq-Zy-snuj-minerals 18 1 tab PO PM 12/31/19 12/21/20 History mg-0.4 mg tablet pantoprazole 40 mg tablet,delayed 40 mg PO PM 12/31/19 12/21/20 History release betamethasone valerate 0.12 % 1 applic TOPICAL DAILY PRN g 07/08/20 12/21/20 History topical foam calcipotriene 0.005 % topical cream 1 applic TOPICAL BID 07/08/20 12/21/20 History desonide 0.05 % topical cream 1 applic TOPICAL BID 07/08/20 12/21/20 History ketoconazole 2 % shampoo 1 applic TOPICAL 3XWK PRN ml 07/08/20 12/21/20 History biotin 5,000 mcg disintegrating 10,000 mcg PO PM 08/11/20 12/21/20 History tablet gabapentin 100 mg capsule 300 mg PO TID cap 08/11/20 12/21/20 History bupropion HCl 300 mg 24 hr tablet, 300 mg PO HS 09/01/20 12/21/20 History extended release (Wellbutrin XL) acetaminophen 500 mg tablet 1,000 mg PO Q6H PRN 12/21/20 12/21/20 History (Tylenol Extra Strength) Past Med/Surg History Medical History (Updated 12/21/20 @ 21:28 by Nallely Carney PA-C) Depression Diverticulitis Encounter for annual routine gynecological examination History of chemotherapy 12/24/2019-06/25/2020 (Cyclophosphamide & Adriamycin x 4 Cycles, Paclitaxel/Abraxane x 12 Cycles) Hypokalemia Hypothyroidism Malignant neoplasm of upper-outer quadrant of left breast in female, estrogen receptor positive (10/04/19) Neutropenic fever Resolved (chemo related) Port-A-Cath in place (02/19/20) 12/12/2019 (By Dr. Rita Moore, removed and replaced by Dr. Garza) Vitiligo Surgical History History of bladder repair surgery (05/08/19) vaginal sling procedure for stress incontinence History of colonoscopy (01/02/18) History of endometrial ablation (2006) History of lumpectomy of left breast (11/21/19) and SLN Biopsy (positive) Status post tubal ligation (2006) Family History Father Prostate cancer, Onset Age: 60 Prostatectomy Mother Hepatitis C Hypothyroidism Grandmother (Paternal) Oral cancer Aunt Breast cancer, Onset Age: 60 Brother No problems noted. Brother No problems noted. Brother No problems noted. Son No problems noted. Daughter No problems noted. Denies family history of Ovarian cancer Colorectal cancer Social History (Updated 12/21/20 @ 21:27 by Nallely Carney PA-C) Smoking Status: Former smoker Tobacco Type: Cigarettes packs per day: 1; Years Smoked: 20; Cigarettes Per Day: 1; Smoking End Date: 2014; Second Hand Exposure: No; Hx Alcohol Use: Yes Alcohol type: beer, wine and hard liquor Alcohol Intake Frequency: 4 or More x per/Week Alcohol Intake Frequency Comment: 3x day Hx Substance Use: No Preferred Language: Cymro Communication Ability: Effective Visual Impairment: No Limitations Hearing Ability: Use of Hearing Aid Farm Butcher Required: No Beliefs That Will Affect Care: None marital status: Legally Current Living Situation: Family Current Living Situation Comment: Lives with daughter current occupational status: employed 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 Physical Exam Physical Exam: Please see Dr. Dacosta's addendum for physical exam. Results & Data Results & Data ([facility]) Vital Signs (Past 12 Hours) Vital Signs Temp Pulse Resp BP Pulse Ox 12/21/20 16:09 37.4 C 93 H 22 108/82 94 12/21/20 14:35 36.7 C 86 16 115/60 98 12/21/20 14:33 79 22 115/60 Laboratory Results Short CBC 12/21/20 Range/Units 14:55 WBC 9.25 (4.8-10.8) K/uL Hgb 11.4 L (12.0-16.0) g/dL Hct 35.2 L (37-47) % Plt Count 186 (130-400) K/uL BMP 12/21/20 14:55 Sodium 134 L Potassium 3.4 L Chloride 101 Carbon Dioxide 24 BUN 10 Creatinine 1.00 Glucose 112 H Calcium 8.5 Liver Function 12/21/20 Range/Units 14:55 Total Bilirubin 0.5 (0.2-1) mg/dl AST 15 (15-37) U/L ALT 20 (12-78) U/L Alkaline Phosphatase 67 (45-117) U/L Albumin 2.9 L (3.4-5.0) gm/dl Urine 12/21/20 Range/Units 15:33 Urine Color Yellow Urine Appearance Clear (Clear) Urine pH 5.5 (4.5-7.5) Ur Specific [place] 1.009 (1.000-1.030) Urine Protein 1+ H (Negative) Urine Glucose (UA) Negative (Negative) Diagnostic Findings Chest X-Ray 12/21/20 15:52 SINGLE VIEW CHEST CLINICAL HISTORY: Fever. FINDINGS: An AP, portable, upright chest radiograph is compared to study dated 12/31/2019. A right internal jugular central venous infusion port is new from previous. The cardiomediastinal silhouette is unremarkable. The lungs and pleural spaces are clear. No pneumothorax is seen. The bony thorax is grossly intact. IMPRESSION: No active disease in the chest. ACT 112: Negative or not required by law. Electronically signed by: Louie Rojo M.D. 12/21/2020 4:21 PM Code Status & VTE Plan VTE Prophylaxis Plan VTE Prophylaxis will be ordered: Yes Supervising Physician Co-Signing Physician Notes Patient is a 50-year-old female with history of breast cancer, hypothyroidism and other medical problems presents with history of fever, headache, diarrhea since 2 days duration. Patient states having multiple UTIs in the past and believes her symptoms secondary to recurrent urinary tract infection. She denies any abdominal pain, dysuria, hematuria, chest pain, dyspnea. Please review HPI for complete details of presentation. Blood work suggestive of minimal hypokalemia, hyponatremia and elevated CRP 29.4. No documented fever while in ED. Physical Exam: Vitals signs as noted above General Appearance:Thin, no apparent distress Head: normocephalic, Atraumatic Eyes: normal inspection, EOMI Neck: supple, Trachea midline Respiratory/Chest: Normal breath sounds, CTA, No accessory muscle use Cardiovascular: S1, S2, No murmur Abdomen/GI:Soft, Non tender, Bowel sounds present Extremities/Musculoskeletal:normal inspection, no edema Neurologic/Psych:AAOX3, grossly no focal neurological deficits Skin: normal color, warm Flu like Symptoms R/O UTI Agree with empiric antibiotics IV fluids Stool studies Replace potassium for hypokalemia Check magnesium levels I personally reviewed the record. Patient is interviewed and examined at bedside. Patient's care is coordinated with Nallely Carney PA-C. Please refer to e documentation above for details of patient's presentation and for discussion of other issues.
[2020-12-21] MEDS ORDERED: ONDANSETRON INJ 2 MG/ML 2 ML VIAL IV PRN (19:53)
[2020-12-21] MEDS ORDERED: LORazepam 1 MG TAB PO PRN (19:53)
[2020-12-21] MEDS: ACETAMINOPHEN 325 MG TAB PO PRN (20:40)
[2020-12-21] MEDS: FOLIC ACID 1 MG TAB PO SCH (20:42)
[2020-12-21] MEDS: THIAMINE HCL 100 MG TAB PO SCH (20:42)
[2020-12-21] MEDS: ESCITALOPRAM OXALATE 20 MG TAB PO SCH (20:42)
[2020-12-21] MEDS: CALCIUM 600MG + VIT D 400 IU TAB PO SCH (20:43)
[2020-12-21] MEDS: GABAPENTIN 300 MG CAP PO SCH (20:43)
[2020-12-21] MEDS: MULTIVITAMIN TAB PO SCH (20:44)
[2020-12-21] MEDS: PANTOprazole 40 MG TAB PO SCH (20:44)
[2020-12-21] MEDS: NSS + 20MEQ KCL 20 MEQ/1,000 ML BAG IV SCH (20:49)
[2020-12-21] MEDS: ENOXAPARIN INJ 40 MG/0.4 ML SYR SQ SCH (20:49)
[2020-12-21] MEDS ORDERED: buPROPion SR 150 MG TABCR PO SCH (21:00)
[2020-12-21] MEDS ORDERED: NON-FORMULARY MEDICATION (Biotin 5,000 mcg tablet,disintegrating) PO SCH (21:00)
[2020-12-21] MEDS ORDERED: buPROPion XL 300 MG TABCR PO SCH (23:00)
[2020-12-21] MEDS ORDERED: HEPARIN 100 UNIT/ML 5ML FLUSH FLUSH PRN (23:21)
[2020-12-21] MEDS: [UNRECOGNIZED DRUG - OTHER] SCH (23:35)
[2020-12-22] MEDS: ACETAMINOPHEN 325 MG TAB PO PRN ×5 (02:53→20:52)
[2020-12-22] MEDS: LEVOTHYROXINE SODIUM 25 MCG TABLET PO SCH (06:26)
[2020-12-22] MEDS: [UNRECOGNIZED DRUG - OTHER] SCH ×2 (06:50→15:08)
[2020-12-22] MEDS: NSS + 20MEQ KCL 20 MEQ/1,000 ML BAG IV SCH ×2 (07:05→17:27)
[2020-12-22] MEDS: GABAPENTIN 300 MG CAP PO SCH ×3 (08:01→20:51)
[2020-12-22] MEDS: THIAMINE HCL 100 MG TAB PO SCH (08:02)
[2020-12-22] MEDS: FOLIC ACID 1 MG TAB PO SCH (08:02)
[2020-12-22 08:08] LABS: Hematocrit (blood only) 31.7 % (37-47); Hemoglobin 10.2 g/dL (12.0-16.0); Mean Corpuscular Hemoglobin 32.3 pg (25-34); Mean Corpuscular Hgb Conc 32.2 g/dL (32-36); Mean Corpuscular Volume 100.3 fL (80-100); Mean Platelet Volume 9.8 fL (7.4-10.4); Platelet Count 161 K/uL (130-400); RDW Coefficient of Variation 14.1 % (11.5-14.5); Red Blood Count 3.16 M/uL (4.2-5.4); White Blood Count 5.56 K/uL (4.8-10.8)
[2020-12-22 08:27] LABS: BUN Creatinine Ratio 8.8 (10-20); Calcium 8.4 mg/dl (8.5-10.1); Creatinine Clr Calc Pharmacy 81.7 ml/min; Est GFR (African American) 98.8 ml/min; Est GFR (Non-African American) 85.3 ml/min; Magnesium 1.7 mg/dl (1.8-2.4); Potassium 3.8 mmol/L (3.5-5.1)
[2020-12-22] MEDS ORDERED: MAGNESIUM SULFATE / D5W 1 GM/100 ML BAG IV ONE (08:32)
[2020-12-22] MEDS ORDERED: LOPERAMIDE HCL 2 MG CAP PO PRN (10:58)
[2020-12-22] MEDS: LACTOBACILLUS ACIDOPHILUS 1 GM PACK PO SCH ×2 (13:08→16:33)
--- NOTE | 2020-12-22 15:52 | Hospitalist Progress Note ---
Date of Service December 22, 2020 Assessment & Plan (1) Acute UTI: (2) Hypokalemia: (3) Breast cancer: (4) Hypothyroidism: (5) Depression: Plan: Patient is a 50 yr female with a history of breast cancer status post completion of her treatment with chemotherapy and radiation, hypothyroidism, depression and other medical problems presenting with fever since yesterday. Flulike symptoms Diarrhea UTI ruled out H/O recurrent UTIs over the summer growing chen sensitive E coli -CXR:No active disease in the chest. -Stool for C. difficile negative Covid screen negative Lyme screen negative Stool culture pending Blood cultures pending Check influenza, RSV screen Empirically started on Rocephin No leukocytosis On IV fluids Hypokalemia Hypomagnesemia Replace electrolytes as needed Breast cancer - in remission Status post completion of her treatment with chemotherapy and radiation Follows with Dr. Treviño Hypothyroidism Continue levothyroxine Check Thyroid function Depression Continue Lexapro, Wellbutrin DVT Px: SQ Lovenox Code status: FULL CODE Admission and Anticipated Discharge Date Admission Date: December 21, 2020 Subjective Patient is seen and examined at bedside Headache resolved Afebrile today Continues to have diarrhea Stool for C. difficile negative Also states having diaphoresis Denies chest pain, dyspnea, nausea, vomiting, abdominal pain Offers no other complaints Review of Systems Review of Systems: All systems reviewed & are unremarkable except as noted in Subjective Physical Exam Physical Exam: Physical Exam: Vitals signs as noted above General Appearance:Thin, no apparent distress Head: normocephalic, Atraumatic Eyes: normal inspection, EOMI Neck: supple, Trachea midline Respiratory/Chest: Normal breath sounds, CTA, No accessory muscle use Cardiovascular: S1, S2, No murmur Abdomen/GI:Soft, Non tender, Bowel sounds present Extremities/Musculoskeletal:normal inspection, no edema Neurologic/Psych:AAOX3, grossly no focal neurological deficits Skin: normal color, warm Results & Data Results & Data ([facility]) Vital Signs (Past 12 Hours) Vital Signs Temp Pulse Pulse Resp BP Pulse Ox 12/22/20 14:56 74 12/22/20 11:00 36.6 C 68 16 100/64 95 12/22/20 07:56 36.8 C 70 16 117/74 95 12/22/20 07:22 72 Laboratory Results Short CBC 12/22/20 Range/Units 07:49 WBC 5.56 (4.8-10.8) K/uL Hgb 10.2 L (12.0-16.0) g/dL Hct 31.7 L (37-47) % Plt Count 161 (130-400) K/uL BMP 12/22/20 07:49 Sodium 137 Potassium 3.8 Chloride 107 Carbon Dioxide 23 BUN 7 Creatinine 0.81 Glucose 99 Calcium 8.4 L Urine 12/21/20 Range/Units 15:33 Urine Color Yellow Urine Appearance Clear (Clear) Urine pH 5.5 (4.5-7.5) Ur Specific [place] 1.009 (1.000-1.030) Urine Protein 1+ H (Negative) Urine Glucose (UA) Negative (Negative)
[2020-12-22] MEDS ORDERED: cefTRIAXone SODIUM 2,000 MG in DEXTROSE 5% 50 ML IV SCH (16:00)
[2020-12-22] MEDS: ESCITALOPRAM OXALATE 20 MG TAB PO SCH (20:50)
[2020-12-22] MEDS: ENOXAPARIN INJ 40 MG/0.4 ML SYR SQ SCH (20:50)
[2020-12-22] MEDS: CALCIUM 600MG + VIT D 400 IU TAB PO SCH (20:50)
[2020-12-22] MEDS: MULTIVITAMIN TAB PO SCH (20:51)
[2020-12-22] MEDS: PANTOprazole 40 MG TAB PO SCH (20:52)
[2020-12-22] MEDS ORDERED: buPROPion XL 300 MG TABCR PO SCH ×2 (21:00→21:25)
[2020-12-22 23:06] VITALS: O2SAT 96
[2020-12-23] MEDS: [UNRECOGNIZED DRUG - OTHER] SCH ×2 (00:17→08:07)
[2020-12-23] MEDS: LEVOTHYROXINE SODIUM 25 MCG TABLET PO SCH (06:38)
[2020-12-23] MEDS: GABAPENTIN 300 MG CAP PO SCH (08:10)
[2020-12-23] MEDS: THIAMINE HCL 100 MG TAB PO SCH (08:10)
[2020-12-23] MEDS ORDERED: Nursing to Pharmacy Communication SCH (08:15)
[2020-12-23 08:32] LABS: Hematocrit (blood only) 32.2 % (37-47); Hemoglobin 10.5 g/dL (12.0-16.0); Mean Corpuscular Hgb Conc 32.6 g/dL (32-36); Mean Corpuscular Volume 98.2 fL (80-100); Mean Platelet Volume 9.9 fL (7.4-10.4); Platelet Count 190 K/uL (130-400); RDW Coefficient of Variation 14.4 % (11.5-14.5); RDW Standard Deviation 51.8 fL (36.4-46.3); Red Blood Count 3.28 M/uL (4.2-5.4)
[2020-12-23 09:00] LABS: BUN Creatinine Ratio 6.7 (10-20); C Reactive Protein 18.1 mg/dl (0-0.29); Calcium 8.7 mg/dl (8.5-10.1); Creatinine Clr Calc Pharmacy 91.9 ml/min; Est GFR (Non-African American) 98.3 ml/min; Magnesium 2.2 mg/dl (1.8-2.4); Potassium 3.8 mmol/L (3.5-5.1)
[2020-12-23 09:15] LABS: T4 Free Thyroxine 1.06 ng/dl (0.8-1.6); Thyroid Stimulating Hormone 1.19 uIu/ml (0.300-4.500)
[2020-12-23] MEDS: FOLIC ACID 1 MG TAB PO SCH (09:25)
[2020-12-23] MEDS: ADVANCED PROBIOTIC 1250 MG CAPSULE PO SCH ×2 (09:26→12:11)
[2020-12-23 11:07] VITALS: BP 104/65; PULSE 66; TEMP 97.9
--- NOTE | 2020-12-23 11:56 | Hospitalist Progress Note ---
Date of Service December 23, 2020 Assessment & Plan (1) Acute UTI: (2) Hypokalemia: (3) Breast cancer: (4) Hypothyroidism: (5) Depression: Plan: Patient is a 50 yr female with a history of breast cancer status post completion of her treatment with chemotherapy and radiation, hypothyroidism, depression and other medical problems presenting with fever since yesterday. Flulike symptoms Diarrhea---Likely due to alcohol use UTI ruled out H/O recurrent UTIs over the summer growing chen sensitive E coli -CXR:No active disease in the chest. -Stool for C. difficile negative Covid screen negative Lyme screen negative Stool culture pending Blood cultures : Negative to date Port site showed to erythema, discharge, no tenderness Influenza, RSV, Lyme screen Negative Empirically received Rocephin No leukocytosis No documented fever during hospitalization Received IV fluids Advised to follow-up with her PCP for final cultures results Prefers to be discharged home Hypokalemia Hypomagnesemia Replace electrolytes as needed Resolved Breast cancer - In remission Status post completion of her treatment with chemotherapy and radiation Follows with Dr. Treviño Hypothyroidism Continue levothyroxine TSH, free T4: Normal Depression Continue Lexapro, Wellbutrin DVT Px: SQ Lovenox Code status: FULL CODE Admission and Anticipated Discharge Date Admission Date: December 21, 2020 Subjective Patient is seen and examined at bedside States feeling much better today No fever since hospitalization Diarrhea much improved No alcohol withdrawal symptoms Denies chest pain, dyspnea, nausea, vomiting, abdominal pain Prefers to be discharged home Review of Systems Review of Systems: All systems reviewed & are unremarkable except as noted in Subjective Physical Exam Physical Exam: Physical Exam: Vitals signs as noted above General Appearance:Thin, no apparent distress Head: normocephalic, Atraumatic Eyes: normal inspection, EOMI Neck: supple, Trachea midline Respiratory/Chest: Normal breath sounds, CTA, No accessory muscle use Cardiovascular: S1, S2, No murmur Abdomen/GI:Soft, Non tender, Bowel sounds present Extremities/Musculoskeletal:normal inspection, no edema Neurologic/Psych:AAOX3, grossly no focal neurological deficits Skin: normal color, warm Results & Data Results & Data ([facility]) Vital Signs (Past 12 Hours) Vital Signs Temp Pulse Pulse Resp BP Pulse Ox 12/23/20 11:00 36.6 C 66 16 104/65 96 12/23/20 07:49 67 12/23/20 07:00 37.1 C 68 16 135/83 96 12/23/20 03:01 36.8 C 65 16 118/74 96 Laboratory Results Short CBC 12/23/20 Range/Units 08:09 WBC 3.50 L (4.8-10.8) K/uL Hgb 10.5 L (12.0-16.0) g/dL Hct 32.2 L (37-47) % Plt Count 190 (130-400) K/uL BMP 12/23/20 08:09 Sodium 136 Potassium 3.8 Chloride 108 H Carbon Dioxide 23 BUN 5 L Creatinine 0.72 Glucose 85 Calcium 8.7
--- NOTE | 2020-12-23 12:02 | Discharge Summary ---
Date of Service December 23, 2020 Admission HPI Per Admitting Provider This is a 50-year-old female with a history of breast cancer status post completion of her treatment with chemotherapy and radiation, hypothyroidism, depression and other medical problems presenting with fever since yesterday. Tmax of 103.6. Also endorsing mild headaches and constipation. Had recent UTIs in September and October and was treated with Macrobid. Outpatient urine cultures grew chen sensitive E coli. No nausea, vomiting or dysuria. No lightheadedness, chest pain, SOB, dysuria, diarrhea. No rash or known tick bite. Earlier this month she had a CT scan of the abdomen pelvis with p.o. and IV contrast which showed no acute abnormalities. Admission Exam Per Admitting Provider Physical Exam: Vitals signs as noted above General Appearance:Thin, no apparent distress Head: normocephalic, Atraumatic Eyes: normal inspection, EOMI Neck: supple, Trachea midline Respiratory/Chest: Normal breath sounds, CTA, No accessory muscle use Cardiovascular: S1, S2, No murmur Abdomen/GI:Soft, Non tender, Bowel sounds present Extremities/Musculoskeletal:normal inspection, no edema Neurologic/Psych:AAOX3, grossly no focal neurological deficits Skin: normal color, warm Principal Diagnosis Flu Like Symptoms Hypokalemia Hypomagnesemia Alcohol use disorder Discharge Data Allergies Allergy/AdvReac Type Severity Reaction Status Date / Time naproxen Allergy Intermediate RASH Verified 12/21/20 14:59 Sulfa (Sulfonamide Allergy Intermediate RASH Verified 12/21/20 14:59 Antibiotics) Consultations 12/21/20 16:20 ED Decision to Admit Stat Hospital Course (1) Acute UTI: (2) Hypokalemia: (3) Breast cancer: (4) Hypothyroidism: (5) Depression: Patient is a 50 yr female with a history of breast cancer status post completion of her treatment with chemotherapy and radiation, hypothyroidism, depression and other medical problems presenting with fever since yesterday. Flulike symptoms Diarrhea---Likely due to alcohol use UTI ruled out H/O recurrent UTIs over the summer growing chen sensitive E coli -CXR:No active disease in the chest. -Stool for C. difficile negative Covid screen negative Lyme screen negative Stool culture pending Blood cultures : Negative to date Port site showed to erythema, discharge, no tenderness Influenza, RSV, Lyme screen Negative Empirically received Rocephin No leukocytosis No documented fever during hospitalization Received IV fluids Advised to follow-up with her PCP for final cultures results Prefers to be discharged home Alcohol use disorder Admits to drinking 5-6 drinks (Rum) per day Continue thiamine, folic acid No withdrawal symptoms currently Ativan as needed Hypokalemia Hypomagnesemia Replace electrolytes as needed Resolved Breast cancer - In remission Status post completion of her treatment with chemotherapy and radiation Follows with Dr. Treviño Hypothyroidism Continue levothyroxine TSH, free T4: Normal Depression Continue Lexapro, Wellbutrin DVT Px: SQ Lovenox Code status: FULL CODE Total Time Total Time Spent Total Time Spent (In Minutes): 37 minutes Discharge Plan Discharge Items Patient Disposition: Home - Self-Care Reason For Visit: FEVER, DIARRHEA Discharge Diagnosis: Flu like symptoms Hypokalemia Hypomagnesemia Activity: Per Instructions section Exercise/Sports: Gradually increase as tolerated Non-emergency contact: Primary Care Provider Call non-emergency contact if: you have any medication questions, your symptoms worsen, your pain is concerning for you and you have a fever Follow-up/Referrals: Rosy Treviño MD [Primary Care Provider] - (Date & Time 12/30/2020 11:20 AM Provider Rosy Treviño MD Department General Internal Medicine [facility] ) Diet: Regular Addtl Attending Provider Instructions: Follow-up with your primary care physician Dr. Treviño in 1 week as advised -----Your final blood and stool cultures are pending at the time of discharge. Follow-up with your physician for results. Quit drinking alcohol as advised. Seek immediate medical attention if your symptoms reoccur or worsen Please take all medications as instructed on discharge list below. Please call if you have any questions or problems. You can reach a [facility] hospitalist on duty at [facility] 24 hours a day by calling [phone] Pending Studies at Discharge: Yes Studies:: Blood, Stool Cultures Stand-Alone Forms: My [facility], Smoking Cessation Medications and DC Order Prescriptions: New folic acid 1 mg Tablet 1 mg PO QAM Qty: 30 RF: 0 thiamine HCl (vitamin B1) [Vitamin B-1] 100 mg Tablet 100 mg PO QAM Qty: 30 RF: 0 Continued betamethasone valerate 0.12 % foam 1 applic topical DAILY PRN (Reason: Flares) RF: 0 ketoconazole 2 % shampoo 1 applic topical 3XWK PRN (Reason: scalp) RF: 0 desonide 0.05 % cream 1 applic topical BID RF: 0 calcipotriene 0.005 % cream 1 applic topical BID RF: 0 gabapentin 100 mg capsule 300 mg PO TID RF: 0 biotin 5,000 mcg tablet,disintegrating 10,000 mcg PO PM RF: 0 bupropion HCl [Wellbutrin XL] 300 mg tablet extended release 24 hr 300 mg PO HS RF: 0 levothyroxine 25 mcg tablet 25 mcg PO QAM RF: 0 pantoprazole 40 mg tablet,delayed release (DR/EC) 40 mg PO PM RF: 0 escitalopram oxalate 20 mg tablet 20 mg PO PM RF: 0 vexyvtwhhexs-Mo-cudv-minerals 18-0.4 mg Tablet 1 tab PO PM RF: 0 calcium carbonate-vitamin D3 [Calcium 600 + D(3)] 600 mg(1,500mg) -400 unit Tablet 2 tab PO PM RF: 0 acetaminophen [Tylenol Extra Strength] 500 mg Tablet 1,000 mg PO Q6H PRN (Reason: Pain) RF: 0 Discharge Orders: Discharge Order (Routine); Ordered 12/23/20 Ordered By: Med Dacosta Admission Data Admit Date/Time: 12/21/20 16:51 Attending Provider: Med Dacosta Admit Provider: Med Dacosta Primary Care Provider: Rosy Treviño Other Providers: Med Dacosta Other Interventions: Discharge Summary Assessment (RN) Last Done: 12/23/20 12:12
== END 2020-12-23 13:04 | disposition home or self-care (01) ==
LOC: 2W 14:09 → ED 14:09 → 2W 19:04